=== PATIENT | female | born 1995 | race Caucasian/White ===

== ENCOUNTER 2018-03-30 16:24 | Emergency (ER) | payer BC, OTHER ==
[2018-03-30 17:24] LABS: APPEARANCE,URINE SLIGHTLY-CLOUDY; BILIRUBIN,URINE NEGATIVE (NEGATIVE); COLOR,URINE AMBER; GLUCOSE, URINE NEGATIVE (NEGATIVE); KETONES,URINE NEGATIVE (NEGATIVE); LEUKOCYTE ESTERASE,URINE NEGATIVE (NEGATIVE); NITRITE,URINE POSITIVE (NEGATIVE); PROTEIN,URINE 30 mg/dL (NEGATIVE); URINE SPECIFIC GRAVITY 1.025
[2018-03-30 17:37] VITALS: BP 111/63
--- NOTE | 2018-03-30 18:04 | ER Document Report ---
ED GI/ - General Chief Complaint: Urinary Problem Stated Complaint: PAINFUL URINATION Time Seen by Provider: 03/30/18 17:10 Mode of Arrival: Ambulatory Information source: Patient Notes: 22-year-old female presented ED for urinary tract symptoms. She states she has burning frequency and urgency with urination. She states she has been treated for UTIs in the past and this feels the same. She states she is usually able to get the antibiotic she needs but she is out of town right now was not able to. Patient is alert and oriented respirations regular and unlabored, speaking in full sentences, walks with a even steady gait. Patient denies any fevers at this time. TRAVEL OUTSIDE OF THE [place] IN LAST 30 DAYS: No - HPI Patient complains to provider of: Other - Frequency urgency and burning with urination Onset: This morning Timing/Duration: Gradual Quality of pain: Burning Severity at maximum: Moderate Severity in ED: Moderate Pain Level: 3 Associated symptoms: Urinary frequency, Urinary urgency, Other - Burning with urination. 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 Lives with: Family Family History: Reviewed & Not Pertinent Patient has suicidal ideation: No Patient has homicidal ideation: No - Past Medical History Cardiac Medical History: Reports: None Pulmonary Medical History: Reports: None EENT Medical History: Reports: None Endocrine Medical History: Reports: None Renal/ Medical History: Reports: Hx Ovarian Cysts - PCOS, Other - Endometriosis, frequent UTIs Malignancy Medical History: Reports: None GI Medical History: Reports: Hx Ulcer Musculoskeltal Medical History: Reports None Skin Medical History: Reports None Psychiatric Medical History: Reports: None Traumatic Medical History: Reports: None Infectious Medical History: Reports: None Past Surgical History: Reports: Hx Appendectomy, Hx Dilation and Curettage - Immunizations Immunizations up to date: Yes Review of Systems - Review of Systems Constitutional: No symptoms reported EENT: No symptoms reported Cardiovascular: No symptoms reported Respiratory: No symptoms reported Gastrointestinal: No symptoms reported Genitourinary: Burning, Frequency, Pain, Urgency Female Genitourinary: No symptoms reported Musculoskeletal: No symptoms reported Skin: No symptoms reported Hematologic/Lymphatic: No symptoms reported Neurological/Psychological: No symptoms reported -: Yes All other systems reviewed and negative Physical Exam - Vital signs Vitals: Temp Pulse Resp BP Pulse Ox 98.3 F 80 16 107/61 98 03/30/18 16:36 03/30/18 16:36 03/30/18 16:36 03/30/18 16:36 03/30/18 16:36 Interpretation: Normal - General General appearance: Appears well, Alert - HEENT Head: Normocephalic, Atraumatic Eyes: Normal Pupils: PERRL - Respiratory Respiratory status: No respiratory distress Chest status: Nontender Breath sounds: Normal Chest palpation: Normal - Cardiovascular Rhythm: Regular Heart sounds: Normal auscultation Murmur: No - Abdominal Inspection: Normal Distension: No distension Bowel sounds: Normal Tenderness: Tender - Suprapubic Organomegaly: No organomegaly - Back Back: Normal, Nontender - Extremities General upper extremity: Normal inspection, Nontender, Normal color, Normal ROM , Normal temperature General lower extremity: Normal inspection, Nontender, Normal color, Normal ROM , Normal temperature, Normal weight bearing. No: Chasity's sign - Neurological Neuro grossly intact: Yes Cognition: Normal Orientation: AAOx4 Cassidy Coma Scale Eye Opening: Spontaneous Spur Coma Scale Verbal: Oriented Cassidy Coma Scale Motor: Obeys Commands Cassidy Coma Scale Total: 15 Speech: Normal Motor strength normal: LUE, RUE, LLE, RLE Sensory: Normal - Psychological Associated symptoms: Normal affect, Normal mood - Skin Skin Temperature: Warm Skin Moisture: Dry Skin Color: Normal Course - Re-evaluation Re-evalutation: 03/30/18 22:16 Patient treated with Bactrim and peridium for her urinary tract symptoms. Urine was also sent for culture to ensure that this is the right antibiotic for her. Patient is allergic to Macrobid and penicillin. Patient started to follow -up with her primary doctor to ensure the urinary tract infection is cleared up. Patient instructed to return to the ED for any increase in symptoms. - Vital Signs Vital signs: Temp Pulse Resp BP Pulse Ox 98.3 F 72 18 111/63 100 07/03/18 16:36 03/30/18 17:35 03/30/18 17:35 03/30/18 17:35 03/30/18 17:35 - Laboratory Laboratory results interpreted by me: 03/30/18 17:00 Urine Protein 30 H Urine Blood MODERATE H Urine Nitrite POSITIVE H Urine Urobilinogen 4.0 H Urine Ascorbic Acid 40 H Discharge - Discharge Clinical Impression: UTI (urinary tract infection) Qualifiers: Urinary tract infection type: site unspecified Hematuria presence: with hematuria Qualified Code(s): N39.0 - Urinary tract infection, site not specified Condition: Stable Disposition: HOME, SELF-CARE Additional Instructions: URINARY TRACT INFECTION: Your evaluation indicates that you have a urinary tract infection. This is due to germs growing in the bladder. This is a common problem. This infection usually responds quickly to antibiotics. Your antibiotic should be taken exactly as prescribed. Drink plenty of fluids -- three to four quarts a day. Occasionally, a bladder anesthetic will be prescribed to help stop the feeling of urgency until the antibiotic has a chance to clear the infection. This may cause your urine to be dark orange. Certain urine infections require a culture. If the doctor obtained a culture, the results will be back in two days. You should call to see if a change in treatment is needed. A repeat urinalysis after you finish treatment is often recommended. The physician will let you know if further testing is required. Call the doctor if you develop fever, chills, flank pain, inability to urinate, or blood in the urine. TRIMETHOPRIM-SULFA: You have been given a prescription for trimethoprim-sulfa (TMS, Septra, Bactrim). This is a combination antibiotic of the sulfa class, often used for urinary tract infections, middle ear infections, bronchitis, shigella intestinal infection, and Pneumocystis pneumonia. TMS is usually well-tolerated. Occasional side effects include nausea and decreased appetite. Septra is not recommended for infants less than two months of age. Do not take this medication if you have experienced severe side effects or allergy to sulfa medicine. You should stop this medicine at once and contact your physician if you develop any rash, joint pain, shortness of breath, bruising, or jaundice ( yellow color in the skin), or if you develop any other new or unusual symptoms. URINARY ANESTHETIC AGENT: You have been given a medication (Pyridium) for urinary tract discomfort. This medicine numbs the lining of the bladder and urethra, resulting in less pain, burning, and urgency. You may take it as needed, according to instructions. When the symptoms resolve, you can stop this medication (be sure to continue any other medications the doctor has given you). This medicine turns the urine a dark orange. It may stain underwear. Occasionally, it can cause nausea. Return for evaluation if there are any unexpected effects, such as itching, hives, or shortness of breath. FOLLOW-UP CARE: If you have been referred to a physician for follow-up care, call the physician s office for an appointment as you were instructed or within the next two days. If you experience worsening or a significant change in your symptoms, notify the physician immediately or return to the Emergency Department at any time for re-evaluation. Prescriptions: Phenazopyridine HCl [Pyridium 200 mg Tablet] 200 mg PO TID #15 tablet Sulfamethoxazole/Trimethoprim [Bactrim Ds Tablet] 1 each PO BID #10 tablet Referrals: HALEIGH LOWRY MD [Primary Care Provider] - Follow up as needed
[2018-03-30] MEDS ORDERED: SULFAMETHOXAZOLE/TRIMETHOPRIM 800-160 MG TABLET PO ONE (18:05)
[2018-03-30] MEDS ORDERED: PHENAZOPYRIDINE HCL 200 MG TABLET PO ONE (18:05)
== END 2018-03-30 18:15 | disposition home or self-care (01) ==
LOC: ER 16:24
DX: N39.0 Urinary tract infection, site not specified (principal); Z88.0 Allergy status to penicillin
CPT/HCPCS: 81001; 87086; 87088; 87186; 99283

== ENCOUNTER 2018-05-18 09:10 | Emergency (ER) | payer OTHER, BC ==
[2018-05-18 09:16] VITALS: BP 112/69
[2018-05-18] MEDS ORDERED: HYDROCODONE/ACETAMINOPHEN 5-325 MG TABLET PO ONE (09:49)
[2018-05-18] MEDS ORDERED: IBUPROFEN 600 MG TABLET PO ONE (09:49)
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
== END 2018-05-18 10:02 | disposition home or self-care (01) ==
LOC: ER 09:10
DX: S16.1XXA Strain of muscle, fascia and tendon at neck level, initial encounter (principal); R51 Headache; M54.2 Cervicalgia; M25.512 Pain in left shoulder; V87.7XXA Person injured in collision between other specified motor vehicles (traffic), initial encounter
CPT/HCPCS: 99283

== ENCOUNTER 2018-05-18 16:11 | Emergency (ER) | payer OTHER, BC ==
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
[2018-05-18 20:30] VITALS: BP 97/57
== END 2018-05-18 20:29 | disposition home or self-care (01) ==
LOC: ER 16:11
DX: S16.1XXD Strain of muscle, fascia and tendon at neck level, subsequent encounter (principal); S09.90XD Unspecified injury of head, subsequent encounter; H53.8 Other visual disturbances; R51 Headache; M54.2 Cervicalgia; R11.0 Nausea; V87.7XXD Person injured in collision between other specified motor vehicles (traffic), subsequent encounter
CPT/HCPCS: 70450; 72050; 99284

== ENCOUNTER 2018-06-27 02:12 | Emergency (ER) | payer BC, OTHER ==
[2018-06-27] MEDS ORDERED: ONDANSETRON HCL INJ/PF 4 MG/2 ML SDV IV ONE (02:29)
[2018-06-27] MEDS ORDERED: NORMAL SALINE 1000 ML 1,000 ML IV ONE (02:29)
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
[2018-06-27 06:03] VITALS: BP 102/65
== END 2018-06-27 05:59 | disposition home or self-care (01) ==
LOC: ER 02:12
DX: F10.129 Alcohol abuse with intoxication, unspecified (principal); R11.2 Nausea with vomiting, unspecified; Z88.1 Allergy status to other antibiotic agents; Z88.0 Allergy status to penicillin
CPT/HCPCS: 99284; 96361; 96374; J2405

== ENCOUNTER 2018-08-01 17:12 | Emergency (ER) | payer BC, OTHER ==
[2018-08-01 18:03] LABS: APPEARANCE,URINE SLIGHTLY-CLOUDY; BILIRUBIN,URINE NEGATIVE (NEGATIVE); COLOR,URINE YELLOW; GLUCOSE, URINE NEGATIVE (NEGATIVE); KETONES,URINE NEGATIVE (NEGATIVE); LEUKOCYTE ESTERASE,URINE NEGATIVE (NEGATIVE); NITRITE,URINE NEGATIVE (NEGATIVE); PROTEIN,URINE NEGATIVE (NEGATIVE); URINE SPECIFIC GRAVITY 1.027
[2018-08-01] MEDS ORDERED: DEXAMETHASONE SOD PHOS INJ 10 MG/1 ML VIAL IM ONE (18:09)
--- NOTE | 2018-08-01 18:11 | ER Document Report ---
HPI - HPI Pain Level: 3 Notes: Patient is a 23-year-old female who presents to the ED complaining of urinary burning over the last few days along with a sore throat, nasal congestion/ discharge. Patient states that she does have a history of an ovarian cyst which is being evaluated by [facility] and planned surgery. She does not believe she is , but does not mind testing. Patient states that she has also been with the same partner for a long period of time and does not have a high suspicion for any STD or STI, but is willing to get that tested as well. She does not want any pretreatment in the meantime. She is otherwise eating and drinking without any difficulties. She is having normal bowel movements. No other concerns or complaints. Denies any headache, fever, neck pain, chest pain , palpitations, syncope, cough, shortness of breath, wheeze, dyspnea, abdominal pain, nausea/vomiting/diarrhea, urinary retention, back pain, loss of control of bowel or bladder, numbness/tingling, or rash. - ROS Systems Reviewed and Negative: Yes All other systems reviewed and negative Past Medical History - Social History Smoking Status: Never Smoker Family History: Reviewed & Not Pertinent Renal/ Medical History: Reports: Hx Ovarian Cysts - PCOS. Denies: Hx Peritoneal Dialysis GI Medical History: Reports: Hx Ulcer Psychiatric Medical History: Reports: Hx Anxiety, Hx Depression Traumatic Medical History: Reports: Hx Fractures - both arms Past Surgical History: Reports: Hx Appendectomy, Hx Dilation and Curettage, Hx Gynecologic Surgery - D&C, Hx Oral Surgery - Immunizations Immunizations up to date: Yes Hx Diphtheria, Pertussis, Tetanus Vaccination: Yes Vertical Provider Document - CONSTITUTIONAL Agree With Documented VS: Yes Notes: PHYSICAL EXAMINATION: GENERAL: Well-appearing, well-nourished and in no acute distress. A&Ox4. Answers questions appropriately. Moves comfortably w/o notable distress HEAD: Atraumatic, normocephalic. EYES: Pupils equal round and reactive to light, extraocular movements intact, sclera anicteric, conjunctiva are normal. ENT: EAC clear b/l. TM's intact b/l without erythema, fluid, or perforation. Nares patent and with clear discharge. oropharynx mild erythema without exudates. 1+ tonsilar hypertrophy with erythema no exudate. No palatine shift. Uvula midline. No tongue protrusion. No drooling, hoarseness, or airway compromise. Moist mucous membranes. No sinus tenderness. NECK: Normal range of motion, supple without lymphadenopathy. No rigidity/ meningismus. LUNGS: Breath sounds clear to auscultation bilaterally and equal. No wheezes rales or rhonchi. No retractions HEART: Regular rate and rhythm without murmurs, rubs, gallops. ABDOMEN: Soft, nontender, nondistended abdomen. No guarding, no rebound. No masses appreciated. Normal bowel sounds present. No CVA tenderness bilaterally. No hepatosplenomegaly. : deferred. pt preferred self-swab. NEUROLOGICAL: Normal speech, normal gait. PSYCH: Normal mood, normal affect. SKIN: Warm, Dry, normal turgor, no rashes or lesions noted. - INFECTION CONTROL TRAVEL OUTSIDE OF THE [place] IN LAST 30 DAYS: No Course - Re-evaluation Re-evalutation: 08/01/18 19:08 Patient is an afebrile, well-hydrated, 23-year-old female who presents to the ED with an acute URI suspect to be viral as well as bacterial vaginosis and dysuria unspecified. Vitals are acceptable without any significant tachycardia , tachypnea, or hypoxia. PE is otherwise unremarkable. Patient's abdomen is soft and nontender. She is nontoxic-appearing and is tolerating p.o. without difficulties. Rapid strep was negative with a throat culture pending. Urinalysis was grossly unremarkable. Urine culture is pending. See wet mount results. Chlamydia/gonorrhea tests are pending and patient declined pretreatment at this time. She is aware that she may need to return if any positive testing. No further labs or imaging warranted at this time. Decadron was given IM today. Low suspicion/risk for joseph-tonsillar/pharyngeal abscess, airway compromise, acute appendicitis, bowel obstruction, acute cholecystitis, acute cholangitis, perforated diverticulitis, incarcerated hernia, pancreatitis , perforated ulcer, peritonitis, sepsis, pelvic inflammatory disease, ectopic , tubo-ovarian abscess, ovarian torsion, or other systemic emergent condition at this time. Patient is aware that her condition can change from initial presentation and she needs to monitor symptoms closely and seek medical attention if any acute changes. I will be sending her home with a prescription for Flagyl. Conservative measures otherwise for symptoms. Recheck with [facility]/ PCM in 2-3 days. Return to the ED with any worsening/concerning symptoms otherwise as reviewed in discharge. Patient is in agreement. - Vital Signs Vital signs: Temp Pulse Resp BP Pulse Ox 98.4 F 86 18 118/72 100 08/01/18 17:23 08/01/18 17:23 08/01/18 17:23 08/01/18 17:23 08/01/18 17:23 - Laboratory Laboratory results interpreted by me: 08/01/18 17:44 Urine Blood LARGE H Urine Urobilinogen 2.0 H Discharge - Discharge Clinical Impression: Acute URI, Dysuria, Bacterial vaginosis Condition: Stable Disposition: HOME, SELF-CARE Instructions: Upper Respiratory Illness ([facility]), Vaginosis, Bacterial ([facility]), Metronidazole ([facility]) Additional Instructions: Maintain fluid intake Proper hygienic technique Keep the skin clean Ajnv-stw-hebaliq meds as needed Tylenol/ibuprofen as needed Check in with the health department this week for further testing if warranted Your chlamydia/Ghon test are pending and you will be notified if positive results; you may call in 1 day for the results as well F/u with your PCM/OBGYN in 2-3 days for a recheck Return to the ED with any development of MCDOWELL/fever, trouble with vision, eye redness, worsening pain, urethral discharge, urinary retention, blood in the urine, flank pain, abdominal pain, n/v, Chest Pain, shortness of breath, joint pains, trouble breathing, or any other worsening/concerning symptoms as needed otherwise. Prescriptions: Metronidazole [Flagyl] 500 mg PO BID #14 tablet Referrals: HALEIGH LOWRY MD [Primary Care Provider] - Follow up as needed [facility] [Provider Group] - Follow up as needed
[2018-08-01 18:34] LABS: BACTERIA (WET MOUNT) 4+ BACTERIA SEEN; EPITHELIALS (WET MOUNT) 3+ EPITHELIALS SEEN; RBCS (WET MOUNT) NO RBCS SEEN; T.VAGINALIS (WET MOUNT) NO TRICHOMONAS SEEN; WBCS (WET MOUNT) 2+ WBCS SEEN; YEAST (WET MOUNT) NO YEAST SEEN
[2018-08-01 19:36] VITALS: BP 99/56
[2018-08-01 19:56] LABS: CHLAM PCR NOT DETECTED (NOT DETECT); GON PCR NOT DETECTED (NOT DETECT)
== END 2018-08-01 19:37 | disposition home or self-care (01) ==
LOC: ER 17:12
DX: J06.9 Acute upper respiratory infection, unspecified (principal); N76.0 Acute vaginitis; B96.89 Other specified bacterial agents as the cause of diseases classified elsewhere; R30.0 Dysuria; J02.9 Acute pharyngitis, unspecified
CPT/HCPCS: 99283; 96372; 87070; 87086; 87210; 87880; 81025; 81001; 87491; 87591; J1100

== ENCOUNTER 2018-08-06 16:43 | Emergency (ER) | payer BC, OTHER ==
[2018-08-06] MEDS ORDERED: DICYCLOMINE HCL 20 MG TABLET PO ONE (17:31)
[2018-08-06] MEDS ORDERED: KETOROLAC TROMETHAMINE 10 MG TABLET PO ONE (17:31)
--- NOTE | 2018-08-06 17:50 | ER Document Report ---
ED General - General Chief Complaint: Abdominal Pain Stated Complaint: BREATHING PROBLEMS Time Seen by Provider: 08/06/18 17:24 Mode of Arrival: Ambulatory Information source: Patient Notes: Chief complaint: Sore throat and cough nasal congestion, abdominal pain History of complain:( obtained from----patient) 23 years old female was recently seen here in the ED had strep throat was done which was negative. She presents today with upper respiratory symptoms such as condition runny nose sore throat cough on and off. Denies any difficulty in breathing or wheezing. She also complained of diffuse abdominal discomfort associated with nausea no vomiting denies any diarrhea but did not have bowel movement more than 3 days. Denies any dysuria frequency urgency. She is being treated for bacterial diagnosis Onset: As above Duration: Last few days Severity: Moderate Quality: Crampy Context: As described above Exacerbating factor and relieving factors: REVIEW OF SYSTEMS: CONSTITUTIONAL : Denies fever, chills, or sweats. Denies recent illness. EENT: Denies eye, ear, throat, or mouth pain or symptoms. Denies nasal or sinus congestion or discharge. Denies throat, tongue, or mouth swelling or difficulty swallowing. CARDIOVASCULAR: Denies chest pain. Denies palpitations or racing or irregular heart beat. Denies ankle edema. RESPIRATORY: Denies cough, cold, or chest congestion. Denies shortness of breath, difficulty breathing, or wheezing. GASTROINTESTINAL: Denies distention. Denies nausea, vomiting, or diarrhea. Denies blood in vomitus, stools, or per rectum. Denies black, tarry stools. Denies constipation. GENITOURINARY: Denies difficulty urinating, painful urination, burning, frequency, blood in urine, or discharge. FEMALE GENITOURINARY: Denies vaginal bleeding, heavy or abnormal periods, irregular periods. Denies vaginal discharge or odor. MUSCULOSKELETAL: Denies back or neck pain or stiffness. Denies joint pain or swelling. SKIN: Denies rash, lesions or sores. HEMATOLOGIC : Denies easy bruising or bleeding. LYMPHATIC: Denies swollen, enlarged glands. NEUROLOGICAL: Denies confusion or altered mental status. Denies passing out or loss of consciousness. Denies dizziness or lightheadedness. Denies headache. Denies weakness or paralysis or loss of use of either side. Denies problems with gait or speech. Denies sensory loss, numbness, or tingling. Denies seizures. PSYCHIATRIC: Denies anxiety or stress. Denies depression, suicidal ideation, or homicidal ideation. ALL OTHER SYSTEMS REVIEWED AND NEGATIVE. PHYSICAL EXAMINATION: GENERAL: Well-appearing, well-nourished and in no acute distress. HEAD: Atraumatic, normocephalic. EYES: Pupils equal round and reactive to light, extraocular movements intact, conjunctiva are normal. ENT: Nares patent, oropharynx erythematous without exudates. Moist mucous membranes. NECK: Normal range of motion, supple without lymphadenopathy LUNGS: Breath sounds clear to auscultation bilaterally and equal. No wheezes rales or rhonchi. HEART: Regular rate and rhythm without murmurs ABDOMEN: Soft, diffuse abdominal tenderness no guarding. Palpable fecal mass, nondistended abdomen. No guarding, no rebound. No masses appreciated. Examination of genitals-deferred Musculoskeletal: Normal range of motion, no pitting or edema. No cyanosis. NEUROLOGICAL: Cranial nerves grossly intact. Normal speech, normal gait. Normal sensory, motor exams PSYCH: Normal mood, normal affect. SKIN: Warm, Dry, normal turgor, no rashes or lesions noted. Dictation was performed using [employer] voice recognition software TRAVEL OUTSIDE OF THE [place] IN LAST 30 DAYS: No - HPI Notes: dictated - Related Data Allergies/Adverse Reactions: nitrofurantoin [From Macrobid] Allergy (Verified 08/06/18 17:01) Penicillins Allergy (Verified 08/06/18 17:01) Past Medical History - Social History Smoking Status: Never Smoker Cigarette use (# per day): No Chew tobacco use (# tins/day): No Smoking Education Provided: No Frequency of alcohol use: None Drug Abuse: None Lives with: Family Family History: Reviewed & Not Pertinent Patient has suicidal ideation: No Patient has homicidal ideation: No Renal/ Medical History: Reports: Hx Ovarian Cysts - PCOS. Denies: Hx Peritoneal Dialysis GI Medical History: Reports: Hx Ulcer Psychiatric Medical History: Reports: Hx Anxiety, Hx Depression Traumatic Medical History: Reports: Hx Fractures - both arms Past Surgical History: Reports: Hx Appendectomy, Hx Dilation and Curettage, Hx Gynecologic Surgery - D&C, Hx Oral Surgery - Immunizations Immunizations up to date: Yes Hx Diphtheria, Pertussis, Tetanus Vaccination: Yes Review of Systems - Review of Systems Notes: dictated Physical Exam - Vital signs Vitals: Temp Pulse Resp BP Pulse Ox 99.4 F 102 H 20 103/70 100 08/06/18 17:05 08/06/18 17:05 08/06/18 17:05 08/06/18 17:05 08/06/18 17:05 - Notes Notes: dictated Course - Vital Signs Vital signs: Temp Pulse Resp BP Pulse Ox 98.1 F 80 20 97/57 L 100 08/06/18 18:58 08/06/18 18:58 08/06/18 17:05 08/06/18 18:58 08/06/18 18:58 - Laboratory Laboratory results interpreted by me: 08/06/18 17:45 Urine Ketones TRACE H Urine Blood SMALL H Ur Leukocyte Esterase SMALL H - Diagnostic Test Radiology reviewed: Image reviewed - KUB shows large amount of fecal material Discharge - Discharge Clinical Impression: Constipation by delayed colonic transit URI (upper respiratory infection) Qualifiers: URI type: unspecified URI Qualified Code(s): J06.9 - Acute upper respiratory infection, unspecified Condition: Fair Disposition: HOME, SELF-CARE Instructions: Constipation ([facility]), Upper Respiratory Infection, Infant or Child ([facility]) Prescriptions: Ketorolac Tromethamine [Toradol 10 mg Tablet] 10 mg PO Q8HP PRN #14 tablet PRN Reason: Azithromycin [Zithromax 250 mg Tablet] 250 mg PO ASDIR PRN #6 tablet PRN Reason: Dicyclomine HCl [Bentyl 10 mg Capsule] 1 cap PO TID #30 cap Lactulose [Cephulac Syrup 20 gm/30 ml Udcup] 20 gm PO BID #120 udc [id number]/Sod Sulf,Bicarb,Cl/KCl [Golytely Packet] 1 each PO ASDIR PRN #1 powd.pack PRN Reason: Referrals: HALEIGH LOWRY MD [Primary Care Provider] - Follow up as needed
[2018-08-06 18:10] LABS: APPEARANCE,URINE CLEAR; BILIRUBIN,URINE NEGATIVE (NEGATIVE); COLOR,URINE YELLOW; GLUCOSE, URINE NEGATIVE (NEGATIVE); KETONES,URINE TRACE mg/dL (NEGATIVE); LEUKOCYTE ESTERASE,URINE SMALL (NEGATIVE); NITRITE,URINE NEGATIVE (NEGATIVE); PROTEIN,URINE NEGATIVE (NEGATIVE); URINE SPECIFIC GRAVITY 1.021; UROBILINOGEN,URINE NEGATIVE mg/dL (<2.0)
[2018-08-06 18:59] VITALS: BP 97/57
--- NOTE | 2018-08-06 19:03 | RADIOLOGY REPORT (SQ) ---
EXAM DESCRIPTION: KUB/ABDOMEN (SINGLE VIEW) COMPLETED DATE/TIME: 08/06/2018 6:54 pm REASON FOR STUDY: Abdominal pain COMPARISON: None. NUMBER OF VIEWS: One view. TECHNIQUE: Supine radiographic image of the abdomen acquired. LIMITATIONS: None. FINDINGS: BOWEL GAS PATTERN: Normal bowel gas pattern. No dilated loops. CALCIFICATIONS: No suspicious calcifications. SOFT TISSUES: No gross mass or suggestion of organomegaly. HARDWARE: None in the abdomen. BONES: No acute fracture. No worrisome bone lesions. OTHER: No other significant finding. IMPRESSION: NO RADIOGRAPHIC EVIDENCE FOR ACUTE ABDOMINAL DISEASE. TECHNICAL DOCUMENTATION: JOB ID: [id number] [employer]- All Rights Reserved Reading location - IP/workstation name: [email or web address]
== END 2018-08-06 19:00 | disposition home or self-care (01) ==
LOC: ER 16:43
DX: K59.01 Slow transit constipation (principal); J06.9 Acute upper respiratory infection, unspecified; J02.9 Acute pharyngitis, unspecified; R05 Cough; R09.81 Nasal congestion; R10.84 Generalized abdominal pain; R11.0 Nausea; Z88.1 Allergy status to other antibiotic agents; Z88.0 Allergy status to penicillin
CPT/HCPCS: 99284; 81025; 86308; 81001; 74018; J3490 ×2

== ENCOUNTER 2018-09-02 05:14 | Day surgery (SDC) | payer BC, OTHER ==
[2018-08-31 12:10] LABS: APPEARANCE,URINE SLIGHTLY-CLOUDY; BILIRUBIN,URINE NEGATIVE (NEGATIVE); COLOR,URINE YELLOW; GLUCOSE, URINE NEGATIVE (NEGATIVE); KETONES,URINE NEGATIVE (NEGATIVE); LEUKOCYTE ESTERASE,URINE NEGATIVE (NEGATIVE); NITRITE,URINE NEGATIVE (NEGATIVE); PROTEIN,URINE NEGATIVE (NEGATIVE); URINE SPECIFIC GRAVITY 1.014; UROBILINOGEN,URINE NEGATIVE mg/dL (<2.0)
[2018-08-31 12:18] LABS: HEMATOCRIT 39.7 % (36.0-47.0); HEMOGLOBIN 13.6 g/dL (12.0-15.5); MEAN CORPUSCULAR HEMOGLOBIN 29.2 pg (27.0-33.4); MEAN CORPUSCULAR HGB CONC 34.3 g/dL (32.0-36.0); MEAN CORPUSCULAR VOLUME 85 fl (80-97); PLATELET COUNT 205 10^3/uL (150-450); RED BLOOD COUNT 4.67 10^6/uL (3.72-5.28); RED CELL DISTRIBUTION WIDTH 15.1 % (11.5-14.0); WHITE BLOOD COUNT 4.6 10^3/uL (4.0-10.5)
--- NOTE | 2018-08-31 12:26 | RADIOLOGY REPORT (SQ) ---
EXAM DESCRIPTION: CHEST PA/LATERAL COMPLETED DATE/TIME: 08/31/2018 12:18 pm REASON FOR STUDY: PRE-OP COMPARISON: None. EXAM PARAMETERS: NUMBER OF VIEWS: two views TECHNIQUE: Digital Frontal and Lateral radiographic views of the chest acquired. RADIATION DOSE: NA LIMITATIONS: none FINDINGS: LUNGS AND PLEURA: No opacities, masses or pneumothorax. No pleural effusion. MEDIASTINUM AND HILAR STRUCTURES: No masses or contour abnormalities. HEART AND VASCULAR STRUCTURES: Heart normal size. No evidence for failure. BONES: Dextroconvex scoliosis of the thoracic spine. HARDWARE: None in the chest. OTHER: No other significant finding. IMPRESSION: 1. NO SIGNIFICANT RADIOGRAPHIC FINDING IN THE CHEST. TECHNICAL DOCUMENTATION: JOB ID: [id number] [employer]- All Rights Reserved Reading location - IP/workstation name: [email or web address]
[2018-08-31 12:46] LABS: ANION GAP 13 (5-19); BLOOD UREA NITROGEN 10 mg/dL (7-20); CALCIUM 9.8 mg/dL (8.4-10.2); CARBON DIOXIDE 28 mmol/L (22-30); CHLORIDE 101 mmol/L (98-107); GLUCOSE 62 mg/dL (75-110); POTASSIUM 4.1 mmol/L (3.6-5.0); SODIUM 141.7 mmol/L (137-145)
--- NOTE | 2018-08-31 20:11 | EKG REPORT ---
SEVERITY:- NORMAL ECG - SINUS RHYTHM : Confirmed by: Xander Nino 31-Aug-2018 20:10:42
[~2018-09-02 05:14] MED LIST: CLINDAMYCIN 600 MG/D5W RTU 600 MG/50 ML RTUPB IV PRN; LACTATED RINGERS 1000 ML IV PRN; LIDOCAINE 0.5% INJ-PF (5 MG/ML) 50 ML SDV SUBCUT PRN; RINGERS SOLUTION,LACTATED 1,000 ML IV PRN
[2018-09-02] MEDS ORDERED: CLINDAMYCIN 600 MG/D5W RTU 600 MG/50 ML RTUPB IV ONE (05:24)
[2018-09-02] MEDS ORDERED: ALBUTEROL SULFATE 0.083% NEB 2.5 MG/3 ML AMPUL NEB ONE ×2 (05:48→06:45)
[2018-09-02] MEDS ORDERED: FENTANYL CITRATE INJ/PF 250 MCG/5 ML AMPULE ONE (07:02)
[2018-09-02] MEDS ORDERED: ACETAMINOPHEN 1,000 MG/100 ML RTUPB IV ONE (07:02)
[2018-09-02] MEDS ORDERED: MIDAZOLAM 2 MG/2 ML INJ ONE (07:02)
[2018-09-02] MEDS ORDERED: DEXMEDETOMIDINE INJ 80 MCG/20 ML VIAL IV ONE (07:02)
[2018-09-02] MEDS ORDERED: PROPOFOL INJ 200 MG/20 ML VIAL IV ONE (07:02)
[2018-09-02] MEDS ORDERED: LIDOCAINE 2% INJ-PF (20 MG/ML) 10 ML AMPUL ONE (07:13)
[2018-09-02] MEDS ORDERED: EPHEDRINE SULFATE INJ 50 MG/1 ML AMPULE ONE (07:13)
[2018-09-02] MEDS ORDERED: METHYLENE BLUE 50 MG/10 ML AMPULE ONE (07:21)
[2018-09-02] MEDS ORDERED: LIDOCAINE 1% INJ-PF (10 MG/ML) 30 ML SDV ONE (07:21)
[2018-09-02] MEDS ORDERED: FENTANYL CITRATE INJ/PF 100 MCG/2 ML AMPUL IV PRN ×3 (08:12)
[2018-09-02] MEDS ORDERED: ONDANSETRON HCL INJ/PF 4 MG/2 ML SDV IV PRN (08:12)
[2018-09-02] MEDS ORDERED: MEPERIDINE HCL/PF INJ 25 MG/1 ML DISP.SYRIN IV PRN (08:12)
[2018-09-02] MEDS ORDERED: PROMETHAZINE HCL INJ 25 MG/1 ML VIAL IV PRN ×2 (08:12)
[2018-09-02] MEDS ORDERED: DIPHENHYDRAMINE HCL 50 MG/ML VIAL IV PRN (08:12)
[2018-09-02] MEDS ORDERED: MORPHINE SULFATE 10 MG/ML INJ IV PRN (08:12)
--- NOTE | 2018-09-02 08:53 | OPERATIVE REPORT E ---
Operative Report NAME: MARCO A SOLIMAN : 1995 AGE: 23Y DATE OF SURGERY: 09/02/2018 ROOM: PREOPERATIVE DIAGNOSES: 1. Chronic pelvic pain. 2. Endometriosis. POSTOPERATIVE DIAGNOSES: 1. Chronic pelvic pain. 2. Endometriosis with bilateral endometriomas. OPERATION: 1. Diagnostic and operative laparoscopy. 2. Lysis of adhesions. 3. Chromopertubation. SURGEON: HIRAM FERNANDEZ M.D. ANESTHESIA: General endotracheal. COMPLICATIONS: None. FINDINGS: Bilateral endometriomas, possibly 2 cm, anterior and posterior cul-de-sac endometriosis powder villanueva present, pelvic adhesions to posterior cul-de-sac involving the left. Both ovaries were bound down and freed up during the procedure, and normal anatomy was approximated as best as could be performed. Upper abdomen is normal with normal gallbladder seen. Normal uterus is noted. Patent right tube was appreciated. Left tube was unable to be chromopertubated; however, it appeared normal. ESTIMATED BLOOD LOSS: Less than 5 mL. INDICATIONS FOR PROCEDURE: The patient had a 20-week loss and persistent left-sided pain. Ultrasound demonstrated what appeared to be a right follicular cyst and a left endometrioma. She desired attempt at definitive therapy. No guarantees or warranties regarding future fertility or pelvic pain relief have been made with the patient. PROCEDURE: The patient was taken to the operating room and placed in the modified lithotomy position after adequate anesthesia was ascertained, prepped and draped for a laparoscopy. A surgical time out was performed, antibiotics were given, and EUA performed. The bladder was drained under sterile technique with Epstein catheter inserted. A HUMI was placed within the uterus and draped in the sterile field. An open laparoscopy was performed due to previous surgery she had had and this extended to subcutaneous fat and fascia. The peritoneum was entered without difficulty. Origin cannula was placed and inflated. Gas was then instilled under direct visualization. Two ports were placed, one 10 mm port in the midline and one 5 mm port in the left midclavicular line at the region of an old appendectomy site. The above-noted findings were appreciated. Extensive lysis of adhesions was performed. The left ovary was brought into the operative field using grasping forceps and using monopolar cautery and scissors. The area of the endometrioma was filleted open and attempts to remove the entire capsule performed and unsuccessful due to the amount and extensive nature of the scarring within the ovary. Chromopertubation was performed prior to this aspect of the procedure. Copious irrigation was then performed, removing all debris. Both ovaries were noted to be free at the completion of the procedure. Approximately 150 mL of sterile saline was left in situ. Bleeding was nil. The right ovary demonstrated no focal capsule present but a right corpus luteum cyst was present. Due to further desire for fertility and approximation of normal anatomy as best as could be performed at this point, we elected to discontinue the case at this point. Fascia was closed with a 0-Vicryl stitch and subcuticular stitch of 3-0 plain gut was placed. At completion of the procedure all sponge and needle counts were correct. The patient was awakened and taken to the recovery room in stable condition. DICTATING PHYSICIAN: HIRAM FERNANDEZ M.D. [id number] PHY#: [id number] ID: [id number] JOB#: [id number] ACCT: [id number] cc:HIRAM FERNANDEZ M.D. >
[2018-09-02] MEDS ORDERED: OXYCODONE-ACETAMINOPHEN 5-325 MG TABLET ONE (09:10)
[2018-09-02] MEDS ORDERED: RINGERS SOLUTION,LACTATED 1,000 ML IV PRN (09:38)
[2018-09-02] MEDS ORDERED: OXYCODONE-ACETAMINOPHEN 5-325 MG TABLET PO PRN ×2 (09:42)
[2018-09-02] MEDS ORDERED: PROMETHAZINE HCL INJ 25 MG/1 ML VIAL IM PRN (09:43)
[2018-09-02] MEDS ORDERED: MORPHINE SULFATE 10 MG/ML INJ INJ PRN (09:43)
[2018-09-02 11:03] VITALS: BP 102/71
[2018-09-02] MEDS ORDERED: SUCCINYLCHOLINE CHLORIDE INJ 200 MG/10 ML VIAL ONE (13:46)
[2018-09-02] MEDS ORDERED: NEOSTIGMINE METHYLSULFATE 10 MG/10 ML VIAL ONE (13:46)
[2018-09-02] MEDS ORDERED: ROCURONIUM BROMIDE INJ 50 MG/5 ML VIAL IV ONE (13:46)
[2018-09-02] MEDS ORDERED: ONDANSETRON HCL INJ/PF 4 MG/2 ML SDV ONE (13:46)
[2018-09-02] MEDS ORDERED: DEXAMETHASONE SOD PHOSPHATE INJ 4 MG/1 ML VIAL ONE (13:46)
[2018-09-02] MEDS ORDERED: GLYCOPYRROLATE 1 MG/5 ML SYRINGE ONE (13:46)
[2018-09-02] MEDS ORDERED: PHENYLEPHRINE HCL INJ/PF 10 MG/1 ML SDV ONE (13:46)
[2018-09-02] MEDS ORDERED: LIDOCAINE 2% INJ-PF (20 MG/ML) 2 ML AMPUL ONE (13:46)
[2018-09-02] MEDS ORDERED: METOCLOPRAMIDE HCL INJ/PF 10 MG/2 ML SDV ONE (13:46)
[2018-09-02] MEDS ORDERED: KETOROLAC TROMETHAMINE 60 MG/2 ML SDV ONE (13:46)
[2018-09-02] MEDS ORDERED: IBUPROFEN 800 MG TABLET PO SCH (14:00)
== END 2018-09-02 10:40 | disposition home or self-care (01) ==
LOC: OROUT 05:14
PROVIDERS: ATTEND Specialist
DX: N80.1 Endometriosis of ovary (principal); G89.29 Other chronic pain; R10.2 Pelvic and perineal pain; N80.3 Endometriosis of pelvic peritoneum; N83.11 Corpus luteum cyst of right ovary; N73.6 Female pelvic peritoneal adhesions (postinfective); E28.2 Polycystic ovarian syndrome; N94.10 Unspecified dyspareunia; J45.909 Unspecified asthma, uncomplicated; Z88.0 Allergy status to penicillin; Z88.1 Allergy status to other antibiotic agents; Z79.51 Long term (current) use of inhaled steroids
CPT/HCPCS: 93005; 86900; 86901; 36415; 86850; 82962; 85027; 81025; 80048; 81001; 71046; 93010; 58660; 58350; J2250; J3490 ×6; J1100; J1885; J3010; J2765; J2370; J0330; J2405; J2704; J0131; Q9968; 790

== ENCOUNTER 2018-10-07 12:17 | Emergency (ER) | payer BC, OTHER ==
[2018-10-07 12:23] VITALS: BP 106/72
[2018-10-07] MEDS ORDERED: HYDROCODONE/ACETAMINOPHEN 5-325 MG TABLET PO ONE (12:50)
--- NOTE | 2018-10-07 12:50 | ER Document Report ---
ED GI/ - General Chief Complaint: Vaginal Bleeding Stated Complaint: VAGINAL BLEEDING Time Seen by Provider: 10/07/18 12:46 Mode of Arrival: Ambulatory Notes: Chief complaint: Abdominal pain History of complain:( obtained from----patient) 23 years old female with a history of endometriosis, had recent surgery done for that. Comes with abdominal pain. Unable to take any medications because she has peptic ulcer disease. No fever chills or other constitutional symptoms Onset: Sudden Duration: Last few Severity: Moderate to severe Quality: Sharp Context: Endometriosis Exacerbating factor and relieving factors: None REVIEW OF SYSTEMS: CONSTITUTIONAL : Denies fever, chills, or sweats. Denies recent illness. EENT: Denies eye, ear, throat, or mouth pain or symptoms. Denies nasal or sinus congestion or discharge. Denies throat, tongue, or mouth swelling or difficulty swallowing. CARDIOVASCULAR: Denies chest pain. Denies palpitations or racing or irregular heart beat. Denies ankle edema. RESPIRATORY: Denies cough, cold, or chest congestion. Denies shortness of breath, difficulty breathing, or wheezing. GASTROINTESTINAL: Denies distention. Denies nausea, vomiting, or diarrhea. Denies blood in vomitus, stools, or per rectum. Denies black, tarry stools. Denies constipation. GENITOURINARY: Denies difficulty urinating, painful urination, burning, frequency, blood in urine, or discharge. FEMALE GENITOURINARY: Denies vaginal bleeding, heavy or abnormal periods, irregular periods. Denies vaginal discharge or odor. MUSCULOSKELETAL: Denies back or neck pain or stiffness. Denies joint pain or swelling. SKIN: Denies rash, lesions or sores. HEMATOLOGIC : Denies easy bruising or bleeding. LYMPHATIC: Denies swollen, enlarged glands. NEUROLOGICAL: Denies confusion or altered mental status. Denies passing out or loss of consciousness. Denies dizziness or lightheadedness. Denies headache. Denies weakness or paralysis or loss of use of either side. Denies problems w ith gait or speech. Denies sensory loss, numbness, or tingling. Denies seizures. PSYCHIATRIC: Denies anxiety or stress. Denies depression, suicidal ideation, or homicidal ideation. ALL OTHER SYSTEMS REVIEWED AND NEGATIVE. PHYSICAL EXAMINATION: GENERAL: Well-appearing, well-nourished and in no acute distress. HEAD: Atraumatic, normocephalic. EYES: Pupils equal round and reactive to light, extraocular movements intact, conjunctiva are normal. ENT: Nares patent, oropharynx clear without exudates. Moist mucous membranes. NECK: Normal range of motion, supple without lymphadenopathy LUNGS: Breath sounds clear to auscultation bilaterally and equal. No wheezes rales or rhonchi. HEART: Regular rate and rhythm without murmurs ABDOMEN: Soft, nontender, nondistended abdomen. No guarding, no rebound. No masses appreciated. Examination of genitals-deferred Musculoskeletal: Normal range of motion, no pitting or edema. No cyanosis. NEUROLOGICAL: Cranial nerves grossly intact. Normal speech, normal gait. Normal sensory, motor exams PSYCH: Normal mood, normal affect. SKIN: Warm, Dry, normal turgor, no rashes or lesions noted. Dictation was performed using [employer] voice recognition software TRAVEL OUTSIDE OF THE [place] IN LAST 30 DAYS: No - HPI Notes: 10/07/18 12:48 Dictated - Related Data Allergies/Adverse Reactions: nitrofurantoin [From Macrobid] Allergy (Verified 10/07/18 12:19) Penicillins Allergy (Verified 10/07/18 12:19) Past Medical History - General Last Menstrual Period: 09/03/2018 - Social History Smoking Status: Never Smoker Chew tobacco use (# tins/day): No Frequency of alcohol use: Occasional Drug Abuse: None Lives with: Family Family History: Reviewed & Not Pertinent Patient has suicidal ideation: No Patient has homicidal ideation: No - Past Medical History Cardiac Medical History: Denies: Hx Coronary Artery Disease, Hx Heart Attack, Hx Hypertension Pulmonary Medical History: Denies: Hx Asthma, Hx Bronchitis, Hx COPD, Hx Pneumonia Neurological Medical History: Denies: Hx Cerebrovascular Accident, Hx Seizures Renal/ Medical History: Reports: Hx Ovarian Cysts - PCOS. Denies: Hx Peritoneal Dialysis GI Medical History: Reports: Hx Ulcer Musculoskeletal Medical History: Denies Hx Arthritis Psychiatric Medical History: Reports: Hx Anxiety, Hx Depression Traumatic Medical History: Reports: Hx Fractures - both arms Past Surgical History: Reports: Hx Appendectomy, Hx Dilation and Curettage, Hx Gynecologic Surgery - D&C 2016, DRAINED CYST ON L OVARY, Hx Oral Surgery - Immunizations Immunizations up to date: Yes Hx Diphtheria, Pertussis, Tetanus Vaccination: Yes Review of Systems - Review of Systems Notes: Dictated Physical Exam - Vital signs Vitals: Temp Pulse Resp BP Pulse Ox 97.9 F 75 16 106/72 100 10/07/18 12:22 10/07/18 12:22 10/07/18 12:22 10/07/18 12:22 10/07/18 12:22 - Notes Notes: Dictated Course - Vital Signs Vital signs: Temp Pulse Resp BP Pulse Ox 97.9 F 75 16 106/72 100 10/07/18 12:22 10/07/18 12:22 10/07/18 12:22 10/07/18 12:22 10/07/18 12:22 Discharge - Discharge Clinical Impression: Endometriosis Abdominal pain Qualifiers: Abdominal location: generalized Qualified Code(s): R10.84 - Generalized abdominal pain Condition: Fair Disposition: HOME, SELF-CARE Instructions: Abdominal Pain ([facility]), Endometriosis ([facility]) Prescriptions: Hydrocodone Bit/Acetaminophen [Hydrocodon-Acetaminophen 5-325] 1 each PO TID #14 tablet Referrals: HALEIGH LOWRY MD [Primary Care Provider] - Follow up as needed
== END 2018-10-07 13:00 | disposition home or self-care (01) ==
LOC: ER 12:17
DX: N80.9 Endometriosis, unspecified (principal); R10.84 Generalized abdominal pain; Z88.3 Allergy status to other anti-infective agents; Z88.0 Allergy status to penicillin
CPT/HCPCS: 99283

== ENCOUNTER 2018-10-22 05:42 | Emergency (ER) | payer BC, OTHER ==
[2018-10-22 05:49] VITALS: BP 103/63
[2018-10-22] MEDS ORDERED: CEPHALEXIN 500 MG CAPSULE PO ONE (07:37)
--- NOTE | 2018-10-22 07:41 | ER Document Report ---
ED General - General Chief Complaint: Ear Pain Stated Complaint: HEARING LOSS LEFT EAR Time Seen by Provider: 10/22/18 07:25 Primary Care Provider: ELIAS BETANCOURT MD [[facility]] - Follow up as needed HALEIGH LOWRY MD [Primary Care Provider] - Follow up as needed TRAVEL OUTSIDE OF THE [place] IN LAST 30 DAYS: No - HPI Patient complains to provider of: Hearing loss left ear Notes: Patient states hearing loss for approximately 24 hours. Patient states approximately 72 hours of URI type symptoms with runny nose congestion cough. Patient denies any recent travel denies any fevers chills nausea vomiting diarrhea denies any trauma to her ear. Patient otherwise resting comfortably upon my evaluation. - Related Data Allergies/Adverse Reactions: nitrofurantoin [From Macrobid] Allergy (Verified 10/07/18 12:19) Penicillins Allergy (Verified 10/07/18 12:) Past Medical History - Social History Smoking Status: Never Smoker Family History: Reviewed & Not Pertinent Patient has suicidal ideation: No Patient has homicidal ideation: No - Past Medical History Cardiac Medical History: Denies: Hx Coronary Artery Disease, Hx Heart Attack, Hx Hypertension Pulmonary Medical History: Denies: Hx Asthma, Hx Bronchitis, Hx COPD, Hx Pneumonia Neurological Medical History: Denies: Hx Cerebrovascular Accident, Hx Seizures Renal/ Medical History: Reports: Hx Ovarian Cysts - PCOS. Denies: Hx Peritoneal Dialysis GI Medical History: Reports: Hx Ulcer Musculoskeletal Medical History: Denies Hx Arthritis Psychiatric Medical History: Reports: Hx Anxiety, Hx Depression Traumatic Medical History: Reports: Hx Fractures - both arms Past Surgical History: Reports: Hx Appendectomy, Hx Dilation and Curettage, Hx Gynecologic Surgery - D&C 2015, DRAINED CYST ON L OVARY, Hx Oral Surgery - Immunizations Immunizations up to date: Yes Hx Diphtheria, Pertussis, Tetanus Vaccination: Yes Review of Systems - Review of Systems Constitutional: No symptoms reported EENT: Nose congestion, Other - Difficulty hearing left ear Cardiovascular: No symptoms reported Respiratory: No symptoms reported Gastrointestinal: No symptoms reported Genitourinary: No symptoms reported Female Genitourinary: No symptoms reported Musculoskeletal: No symptoms reported Skin: No symptoms reported Hematologic/Lymphatic: No symptoms reported Neurological/Psychological: No symptoms reported Physical Exam - Vital signs Vitals: Temp Pulse Resp BP Pulse Ox 97.2 F 70 16 103/63 100 10/22/18 05:47 10/22/18 05:47 10/22/18 05:47 10/22/18 05:47 10/22/18 05:47 Interpretation: Normal - General General appearance: Appears well, Alert - HEENT Head: Normocephalic, Atraumatic Eyes: Normal Conjunctiva: Normal Cornea: Normal Pupils: PERRL Ears: Normal External canal: Normal Tympanic membrane: Other - Left TM is erythematous with a purulent effusion behind right TM unaffected - Respiratory Respiratory status: No respiratory distress Chest status: Nontender Breath sounds: Normal Chest palpation: Normal - Cardiovascular Rhythm: Regular Heart sounds: Normal auscultation Murmur: No - Abdominal Inspection: Normal Distension: No distension Bowel sounds: Normal Tenderness: Nontender Organomegaly: No organomegaly - Back Back: Normal, Nontender - Extremities General upper extremity: Normal inspection, Nontender, Normal color, Normal ROM, Normal temperature General lower extremity: Normal inspection, Nontender, Normal color, Normal ROM, Normal temperature, Normal weight bearing. No: Chasity's sign - Neurological Neuro grossly intact: Yes Cognition: Normal Orientation: AAOx4 Cassidy Coma Scale Eye Opening: Spontaneous Byers Coma Scale Verbal: Oriented Cassidy Coma Scale Motor: Obeys Commands Byers Coma Scale Total: 15 Speech: Normal Motor strength normal: LUE, RUE, LLE, RLE Sensory: Normal - Psychological Associated symptoms: Normal affect, Normal mood - Skin Skin Temperature: Warm Skin Moisture: Dry Skin Color: Normal Course - Re-evaluation Re-evalutation: 10/22/18 14:57 Patient's examination consistent with otitis media infection. Possible etiology of patient's hearing loss. We will start the patient on Keflex that she is allergic to penicillins. Patient states she has taken Keflex in the past without any difficulty requesting Diflucan for a yeast infection. This was given to the patient as well - Vital Signs Vital signs: Temp Pulse Resp BP Pulse Ox 97.2 F 70 16 103/63 100 10/22/18 05:47 10/22/18 05:47 10/22/18 05:47 10/22/18 05:47 10/22/18 05:47 Discharge - Discharge Clinical Impression: Left middle ear infection Qualifiers: Otitis media type: unspecified Qualified Code(s): H66.92 - Otitis media, unspecified, left ear Disposition: HOME, SELF-CARE Instructions: Otitis Media ([facility]) Additional Instructions: Examination of your today shows signs of infection we will start you on a medication called Keflex. To help with your antibiotic associated yeast infection would recommend Monistat [id number] please wait 5-7 days at the complete the antibiotics if you still have signs of yeast infection you may take the Diflucan as prescribed. Take Tylenol Motrin for pain control Prescriptions: Cephalexin Monohydrate [Keflex 500 mg Capsule] 500 mg PO Q6H 10 Days capsule Fluconazole [Diflucan] 200 mg PO ONCE PRN #1 tablet PRN Reason: Referrals: HALEIGH LOWRY MD [Primary Care Provider] - Follow up as needed ELIAS BETANCOURT MD [[facility]] - Follow up as needed
== END 2018-10-22 07:50 | disposition home or self-care (01) ==
LOC: ER 05:42
DX: H66.92 Otitis media, unspecified, left ear (principal); H91.92 Unspecified hearing loss, left ear; R09.81 Nasal congestion; B37.9 Candidiasis, unspecified; Z88.1 Allergy status to other antibiotic agents; Z88.0 Allergy status to penicillin
CPT/HCPCS: 99282

== ENCOUNTER 2018-11-21 21:19 | Emergency (ER) | payer BC, OTHER ==
[2018-11-22 00:07] LABS: A TYPE INFLUENZA AG NEGATIVE (NEGATIVE); B INFLUENZA AG NEGATIVE (NEGATIVE)
--- NOTE | 2018-11-22 00:33 | ER Document Report ---
ED General - General Chief Complaint: Sore Throat Stated Complaint: SORE THROAT Time Seen by Provider: 11/21/18 22:46 Notes: Patient is a 23-year-old female without chronic medical problems who presents with 9 days of sore throat, cough and fever. Patient states that her symptoms started gradually and have not improved over that period of time. Describes a sore throat is a constant, aching soreness worsened by swallowing. She has tried [id number] medications with minimal improvement of her symptoms. States she came to the emergency department with her significant other as he is also sick and her symptoms are not getting better. She denies vomiting or diarrhea. Has been able to tolerate oral intake without difficulty. Denies difficulty breathing or inability to swallow. No syncope. Did get an influenza vaccine this year. Has not seen her primary care physician regarding today's concerns. TRAVEL OUTSIDE OF THE [place] IN LAST 30 DAYS: No - Related Data Allergies/Adverse Reactions: nitrofurantoin [From Macrobid] Allergy (Verified 10/07/18 12:19) Penicillins Allergy (Verified 10/07/18 12:19) Past Medical History - General Information source: Patient - Social History Smoking Status: Never Smoker Frequency of alcohol use: None Drug Abuse: None Lives with: Spouse/Significant other Family History: Reviewed & Not Pertinent Patient has suicidal ideation: No Patient has homicidal ideation: No - Past Medical History Cardiac Medical History: Denies: Hx Coronary Artery Disease, Hx Heart Attack, Hx Hypertension Pulmonary Medical History: Denies: Hx Asthma, Hx Bronchitis, Hx COPD, Hx Pneumonia Neurological Medical History: Denies: Hx Cerebrovascular Accident, Hx Seizures Renal/ Medical History: Reports: Hx Ovarian Cysts - PCOS. Denies: Hx Peritoneal Dialysis GI Medical History: Reports: Hx Ulcer Musculoskeletal Medical History: Denies Hx Arthritis Psychiatric Medical History: Reports: Hx Anxiety, Hx Depression Traumatic Medical History: Reports: Hx Fractures - both arms Past Surgical History: Reports: Hx Appendectomy, Hx Dilation and Curettage, Hx Gynecologic Surgery - D&C 2015, DRAINED CYST ON L OVARY, Hx Oral Surgery - Immunizations Immunizations up to date: Yes Hx Diphtheria, Pertussis, Tetanus Vaccination: Yes Review of Systems - Review of Systems Notes: Constitutional: Positive for fever. HENT: Positive for sore throat. Eyes: Negative for visual changes. Cardiovascular: Negative for chest pain. Respiratory: Negative for shortness of breath. Positive for cough Gastrointestinal: Negative for abdominal pain, vomiting or diarrhea. Genitourinary: Negative for dysuria. Musculoskeletal: Negative for back pain. Skin: Negative for rash. Neurological: Negative for headaches, weakness or numbness. 10 point ROS negative except as marked above and in HPI. Physical Exam - Vital signs Vitals: Temp Pulse Resp BP Pulse Ox 98.6 F 83 16 111/67 100 11/21/18 21:38 11/21/18 21:38 11/21/18 21:38 11/21/18 21:38 11/21/18 21:38 Interpretation: Normal Notes: PHYSICAL EXAMINATION: GENERAL: Well-appearing, well-nourished and in no acute distress. HEAD: Atraumatic, normocephalic. EYES: Pupils equal round and reactive to light, extraocular movements intact, sclera anicteric, conjunctiva are normal. ENT: nares patent, oropharynx clear without exudates. Moist mucous membranes. NECK: Normal range of motion, supple without lymphadenopathy LUNGS: Breath sounds clear to auscultation bilaterally and equal. No wheezes rales or rhonchi. HEART: Regular rate and rhythm without murmurs ABDOMEN: Soft, nontender, normoactive bowel sounds. No guarding, no rebound. No masses appreciated. EXTREMITIES: Normal range of motion, no pitting or edema. No cyanosis. NEUROLOGICAL: No focal neurological deficits. Moves all extremities spontaneously and on command. PSYCH: Normal mood, normal affect. SKIN: Warm, Dry, normal turgor, no rashes or lesions noted. Course - Re-evaluation Re-evalutation: 11/22/18 00:32 Patient presents with cough, vomiting, diarrhea, and fever at home consistent with a diagnosis of influenza. Although the patient's flu test is negative her significant other whom is here with the exact same symptoms has positive both flu a and flu B testing. Patient is overall well in appearance, in no acute distress. Lung sounds clear. Able to tolerate oral intake without difficulty here in the emergency department. After risks and benefits conversation with the patient regarding the use of Tamiflu, they have elected to use supportive care without Tamiflu based on concerns about lack of efficacy as well as the side effect profile. At this time will discharge with return precautions and follow-up recommendations. Verbal discharge instructions given a the bedside and opportunity for questions given. Medication warnings reviewed. Patient is in agreement with this plan and has verbalized understanding of return precautions and the need for primary care follow-up in the next 24-72 hours. - Vital Signs Vital signs: Temp Pulse Resp BP Pulse Ox 98.9 F 72 18 95/69 L 100 11/22/18 00:58 11/22/18 00:58 11/22/18 00:58 11/22/18 00:58 11/22/18 00:58 Discharge - Discharge Clinical Impression: Influenza, Sore throat Condition: Good Disposition: HOME, SELF-CARE Additional Instructions: You have influenza. There is no treatment that is effective for this diagnosis other than supportive care at home. This includes drinking plenty of fluids, using Tylenol or ibuprofen as needed for fever and discomfort, and Zofran as needed for nausea and vomiting. Please follow closely with you primary care physician the next 1-2 days regarding this diagnosis. Return to the emergency department immediately if you began to have persistent vomiting prevents you f rom being able to keep fluids down for more than 12 hours, you pass out, you began having difficulty breathing, you become confused, or you have any other symptoms that are worrisome to you.
[2018-11-22 01:06] VITALS: BP 95/69
== END 2018-11-22 01:00 | disposition home or self-care (01) ==
LOC: ER 21:19
DX: J11.1 Influenza due to unidentified influenza virus with other respiratory manifestations (principal); R05 Cough; R50.9 Fever, unspecified; Z88.1 Allergy status to other antibiotic agents; Z88.0 Allergy status to penicillin
CPT/HCPCS: 87070; 87804; 87880; 99283

== ENCOUNTER 2019-05-20 12:35 | Emergency (ER) | payer BC, OTHER ==
[2019-05-20] MEDS ORDERED: ACETAMINOPHEN 325 MG TABLET PO ONE (13:18)
--- NOTE | 2019-05-20 13:20 | ER Document Report ---
ED Medical Screen (RME) - General Chief Complaint: Fainting Stated Complaint: POSSIBLE SYNCOPE Time Seen by Provider: 05/20/19 13:12 Mode of Arrival: Ambulatory Information source: Patient Notes: 23-year-old female presented to ED for complaint of syncope at work. She states right after she got up she was aching all over to include and had a chest antibody. She states she did not hit her head. When she first came in the triage had her temperature is 100.1 and her pulse is 102. I rechecked her temperature and pulse temperature is 98.5 pulse is 95 with O2 sat of 100. She states her last menstrual cycle started today. She states she is prediabetic with ovarian cyst and depression. 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 I have greeted and performed a rapid initial assessment of this patient. A comprehensive ED assessment and evaluation of the patient, analysis of test results and completion of medical decision making process will be conducted by an additional ED providers. TRAVEL OUTSIDE OF THE [place] IN LAST 30 DAYS: No - Related Data Allergies/Adverse Reactions: nitrofurantoin [From Macrobid] Allergy (Verified 05/20/19 12:36) Penicillins Allergy (Verified 05/20/19 12:36) Past Medical History - Social History Chew tobacco use (# tins/day): No Frequency of alcohol use: None Drug Abuse: None - Past Medical History Cardiac Medical History: Denies: Hx Coronary Artery Disease, Hx Heart Attack, Hx Hypertension Pulmonary Medical History: Denies: Hx Asthma, Hx Bronchitis, Hx COPD, Hx Pneumonia Neurological Medical History: Denies: Hx Cerebrovascular Accident, Hx Seizures Renal/ Medical History: Reports: Hx Ovarian Cysts - PCOS. Denies: Hx Peritoneal Dialysis GI Medical History: Reports: Hx Ulcer Musculoskeltal Medical History: Denies Hx Arthritis Psychiatric Medical History: Reports: Hx Anxiety, Hx Depression Traumatic Medical History: Reports: Hx Fractures - both arms Past Surgical History: Reports: Hx Appendectomy, Hx Dilation and Curettage, Hx Gynecologic Surgery - D&C 2015, DRAINED CYST ON L OVARY, Hx Oral Surgery - Immunizations Immunizations up to date: Yes Hx Diphtheria, Pertussis, Tetanus Vaccination: Yes History of Influenza Vaccine for 06/2017 - 11/2017 Season: Yes Influenza Administration Date for 06/2017 - 11/2017 Season: 04/28/18 Physical Exam - Vital signs Vitals: Temp Pulse Resp BP Pulse Ox 98.6 F 102 H 16 108/69 100 05/20/19 12:39 05/20/19 12:39 05/20/19 12:39 05/20/19 12:39 05/20/19 12:39 Course - Vital Signs Vital signs: Temp Pulse Resp BP Pulse Ox 98.6 F 102 H 16 108/69 100 05/20/19 12:39 05/20/19 12:39 05/20/19 12:39 05/20/19 12:39 05/20/19 12:39
[2019-05-20 14:02] LABS: HEMATOCRIT 34.8 % (36.0-47.0); HEMOGLOBIN 11.7 g/dL (12.0-15.5); MEAN CORPUSCULAR HEMOGLOBIN 29.4 pg (27.0-33.4); MEAN CORPUSCULAR HGB CONC 33.7 g/dL (32.0-36.0); MEAN CORPUSCULAR VOLUME 87 fl (80-97); PLATELET COUNT 218 10^3/uL (150-450); RED BLOOD COUNT 3.99 10^6/uL (3.72-5.28); RED CELL DISTRIBUTION WIDTH 14.2 % (11.5-14.0); WHITE BLOOD COUNT 15.2 10^3/uL (4.0-10.5)
[2019-05-20 14:14] LABS: APPEARANCE,URINE SLIGHTLY-CLOUDY; BILIRUBIN,URINE NEGATIVE (NEGATIVE); COLOR,URINE YELLOW; GLUCOSE, URINE NEGATIVE (NEGATIVE); KETONES,URINE NEGATIVE (NEGATIVE); LEUKOCYTE ESTERASE,URINE NEGATIVE (NEGATIVE); NITRITE,URINE NEGATIVE (NEGATIVE); PROTEIN,URINE NEGATIVE (NEGATIVE); URINE SPECIFIC GRAVITY 1.016; UROBILINOGEN,URINE NEGATIVE mg/dL (<2.0)
[2019-05-20 14:21] LABS: ALBUMIN 3.8 g/dL (3.5-5.0); ALKALINE PHOSPHATASE 91 U/L (38-126); ANION GAP 9 (5-19); ASPARTATE AMINO TRANSFERASE 24 U/L (14-36); BILIRUBIN,DIRECT 0.3 mg/dL (0.0-0.4); BILIRUBIN,TOTAL 0.3 mg/dL (0.2-1.3); BLOOD UREA NITROGEN 7 mg/dL (7-20); CALCIUM 8.9 mg/dL (8.4-10.2); CARBON DIOXIDE 27 mmol/L (22-30); CHLORIDE 101 mmol/L (98-107); GLUCOSE 89 mg/dL (75-110); POTASSIUM 3.8 mmol/L (3.6-5.0); TOTAL PROTEIN 6.6 g/dL (6.3-8.2)
[2019-05-20 14:22] LABS: ABSOLUTE LYMPHOCYTES# (MANUAL) 0.9 10^3/uL (0.5-4.7); ABSOLUTE MONOCYTES # (MANUAL) 0.5 10^3/uL (0.1-1.4); BAND NEUTROPHILS % (MANUAL) 1 % (3-5); BASOPHILS % (MANUAL) 0 % (0-2); EOSINOPHILS % (MANUAL) 0 % (0-6); LYMPHOCYTES % (MANUAL) 6 % (13-45); MONOCYTES % (MANUAL) 3 % (3-13); SEGMENTED NEUTROPHILS % (MAN) 90 % (42-78); TOTAL CELLS COUNTED 100
[2019-05-20 14:23] LABS: ANISOCYTOSIS SLIGHT; OVALOCYTES SLIGHT; PLATELET COMMENT ADEQUATE; TOXIC VACUOLATION PRESENT
--- NOTE | 2019-05-20 14:58 | RADIOLOGY REPORT (SQ) ---
EXAM DESCRIPTION: CHEST 2 VIEWS COMPLETED DATE/TIME: 05/20/2019 2:47 pm REASON FOR STUDY: Cough congestion body aches syncope today COMPARISON: 08/31/2018 EXAM PARAMETERS: NUMBER OF VIEWS: two views TECHNIQUE: Digital Frontal and Lateral radiographic views of the chest acquired. RADIATION DOSE: NA LIMITATIONS: none FINDINGS: LUNGS AND PLEURA: No opacities, masses or pneumothorax. No pleural effusion. MEDIASTINUM AND HILAR STRUCTURES: No masses or contour abnormalities. HEART AND VASCULAR STRUCTURES: Heart normal size. No evidence for failure. BONES: Mild thoracic scoliosis with concavity toward the left. This is unchanged. HARDWARE: None in the chest. OTHER: No other significant finding. IMPRESSION: NO ACUTE RADIOGRAPHIC FINDING IN THE CHEST. TECHNICAL DOCUMENTATION: JOB ID: [id number] [facility]- All Rights Reserved Reading location - IP/workstation name: [email or web address]
[2019-05-20] MEDS ORDERED: KETOROLAC TROMETHAMINE INJ/PF 30 MG/1 ML SDV IV ONE (16:55)
[2019-05-20] MEDS ORDERED: NORMAL SALINE 1000 ML 1,000 ML IV ONE (16:55)
--- NOTE | 2019-05-20 19:29 | ER Document Report ---
ED General - General Chief Complaint: Fainting Stated Complaint: POSSIBLE SYNCOPE Time Seen by Provider: 05/20/19 13:12 Mode of Arrival: Ambulatory TRAVEL OUTSIDE OF THE [place] IN LAST 30 DAYS: No - HPI Notes: 23-year-old female to the emergency department with complaints of an episode of syncope today occurred just prior to arrival. She states that she was at work when she began to feel poorly and lightheaded. She states that her eyes kind of blacked out on her. She states that she has been feeling overall unwell for the past week. She states that she has had a productive cough with green sputum. She states she has had a fever at home of 101. She states that she has had all over body aches as well. She denies any nausea, vomiting, diarrhea. She denies any chest pain, shortness of breath, headaches, abdominal pain. 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 She denies chance of . She has had an episode of syncope when she was a child. She states that she is feeling better. She denies any further complaints. - Related Data Allergies/Adverse Reactions: nitrofurantoin [From Macrobid] Allergy (Verified 05/20/19 12:36) Penicillins Allergy (Verified 05/20/19 12:36) Past Medical History - General Information source: Patient - Social History Smoking Status: Never Smoker Chew tobacco use (# tins/day): No Frequency of alcohol use: None Drug Abuse: None Family History: Reviewed & Not Pertinent Patient has suicidal ideation: No Patient has homicidal ideation: No - Past Medical History Cardiac Medical History: Denies: Hx Coronary Artery Disease, Hx Heart Attack, Hx Hypertension Pulmonary Medical History: Denies: Hx Asthma, Hx Bronchitis, Hx COPD, Hx Pneumonia Neurological Medical History: Denies: Hx Cerebrovascular Accident, Hx Seizures Renal/ Medical History: Reports: Hx Ovarian Cysts - PCOS. Denies: Hx Peritoneal Dialysis GI Medical History: Reports: Hx Ulcer Musculoskeletal Medical History: Denies Hx Arthritis Psychiatric Medical History: Reports: Hx Anxiety, Hx Depression Traumatic Medical History: Reports: Hx Fractures - both arms Past Surgical History: Reports: Hx Appendectomy, Hx Dilation and Curettage, Hx Gynecologic Surgery - D&C 2016, DRAINED CYST ON L OVARY, Hx Oral Surgery - Immunizations Immunizations up to date: Yes Hx Diphtheria, Pertussis, Tetanus Vaccination: Yes Review of Systems - Review of Systems Constitutional: denies: Chills, Fever EENT: Nose congestion, Nose discharge. denies: Throat pain Cardiovascular: Syncope, Lightheaded. denies: Chest pain, Palpitations, Heart racing, Dyspnea, Dizziness Respiratory: See HPI, Cough, Sputum. denies: Short of breath Gastrointestinal: denies: Abdominal pain, Diarrhea, Nausea, Vomiting Genitourinary: No symptoms reported Musculoskeletal: No symptoms reported Skin: No symptoms reported Neurological/Psychological: No symptoms reported -: Yes All other systems reviewed and negative Physical Exam - Vital signs Vitals: Temp Pulse Resp BP Pulse Ox 98.6 F 102 H 16 108/69 100 05/20/19 12:39 05/20/19 12:39 05/20/19 12:39 05/20/19 12:39 05/20/19 12:39 Interpretation: Tachycardic - General General appearance: Appears well, Alert In distress: None - HEENT Head: Normocephalic, Atraumatic Eyes: Normal Pupils: PERRL Ears: Normal External canal: Normal Tympanic membrane: Normal Sinus: Normal Nasal: Normal Mouth/Lips: Normal Mucous membranes: Normal Pharynx: Normal. No: Peritonsillar abscess, Post nasal drainage, Retropharyngeal abscess, Tonsillar hypertrophy, Uvular edema, Potential airway comprom. Neck: Normal. No: Lymphadenopathy - Respiratory Respiratory status: No respiratory distress Chest status: Nontender Breath sounds: Normal Chest palpation: Normal - Cardiovascular Rhythm: Regular Heart sounds: Normal auscultation Murmur: No - Abdominal Inspection: Normal - She is Distension: No distension Bowel sounds: Normal Tenderness: Nontender Organomegaly: No organomegaly - Back Back: Normal, Nontender. No: CVA tenderness - Extremities General upper extremity: Normal inspection, Nontender, Normal color, Normal ROM, Normal temperature General lower extremity: Normal inspection, Nontender, Normal color, Normal ROM, Normal temperature, Normal weight bearing. No: Chasity's sign - Neurological Neuro grossly intact: Yes Cognition: Normal Orientation: AAOx4 Higbee Coma Scale Eye Opening: Spontaneous Cassidy Coma Scale Verbal: Oriented Cassidy Coma Scale Motor: Obeys Commands Higbee Coma Scale Total: 15 Speech: Normal Cranial nerves: Normal. No: Facial palsy, Forehead sparing, Gaze palsy, Sensory deficit, Tongue deviation Cerebellar coordination: Normal, Heel-thoams - Normal [id number] bilaterally. No leg drift.. 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 No: Pronator drift Sensory: Normal - Psychological Associated symptoms: Normal affect, Normal mood - Skin Skin Temperature: Warm Skin Moisture: Dry Skin Color: Normal Course - Re-evaluation Re-evalutation: 05/20/19 Rounded on patient and she is doing well after Toradol and fluids. She states that she feels better and she would like to go home. She has been up and ambulating in the emergency department without any difficulty. Impression: Vasovagal syncope, upper respiratory illness. Discussed patient with Dr. Joseph, ER attending. We discussed her elevated white count as well as her left shift with 1 band. She looks well. She had a heart rate of 102 when she initially came in. She was afebrile. She is not hypotensive. She has been up and walking around in the emergency department and drinking fluids without any difficulty. She is feeling better. Noted chest x-ray but with her history of productive green sputum we will go ahead and cover with doxycycline. Low suspicion for sepsis. We will have her follow with primary care for further management. Patient agrees with the plan. - Vital Signs Vital signs: Temp Pulse Resp BP Pulse Ox 98.6 F 102 H 16 108/69 100 05/20/19 12:39 05/20/19 12:39 05/20/19 12:39 05/20/19 12:39 05/20/19 12:39 - Laboratory Result Diagrams: 05/20/19 13:45 05/20/19 13:45 Laboratory results interpreted by me: 05/20/19 05/20/19 13:45 13:45 WBC 15.2 H Hgb 11.7 L Hct 34.8 L RDW 14.2 H Seg Neuts % (Manual) 90 H Band Neutrophils % 1 L Lymphocytes % (Manual) 6 L Abs Neuts (Manual) 13.8 H Sodium 136.5 L - Diagnostic Test Radiology reviewed: Image reviewed, Reports reviewed - EKG Interpretation by Ri EKG shows normal: Sinus rhythm Rate: Normal Rhythm: NSR When compared to previous EKG there are: Previous EKG unavailable Additional EKG results interpreted by me: 05/20/19 20:22 No STEMI. Rate of 89. Discharge - Discharge Clinical Impression: Productive cough Syncope Qualifiers: Syncope type: vasovagal syncope Qualified Code(s): R55 - Syncope and collapse Upper respiratory infection Qualifiers: URI type: unspecified URI Qualified Code(s): J06.9 - Acute upper respiratory infection, unspecified Condition: Stable Disposition: HOME, SELF-CARE Instructions: Syncopal Episode ([facility]), Upper Respiratory Illness ([facility]) Additional Instructions: Complete all antibiotics. Rest at home. Return if worsening symptoms or repeat episode of passing out. Push fluids. Follow up with primary care on Thursday without fail. Prescriptions: Doxycycline Hyclate 100 mg PO BID #14 capsule Forms: Return to Work Referrals: MAIDA BAUTISTA MD [ACTIVE STAFF] - Follow up in 1 week
[2019-05-20 20:21] VITALS: BP 101/61
--- NOTE | 2019-05-21 19:09 | EKG REPORT ---
SEVERITY:- ABNORMAL ECG - SINUS RHYTHM PROBABLE LEFT ATRIAL ABNORMALITY PROBABLE LEFT VENTRICULAR HYPERTROPHY : Confirmed by: Celia Ramirez MD 21-May-2019 19:09:15
== END 2019-05-20 20:21 | disposition home or self-care (01) ==
LOC: ER 12:35
DX: R55 Syncope and collapse (principal); R05 Cough; J06.9 Acute upper respiratory infection, unspecified
CPT/HCPCS: 93005; 99284; 96361; 96374; 36415; 84703; 85025; 80053; 81001; 71046; 93010; J1885; J7030

== ENCOUNTER 2019-05-23 13:36 | Emergency (ER) | payer BC ==
[2019-05-23] MEDS ORDERED: NORMAL SALINE 1000 ML 1,000 ML IV ONE (14:06)
--- NOTE | 2019-05-23 14:07 | ER Document Report ---
ED Medical Screen (RME) - General Chief Complaint: Near Syncope Stated Complaint: POSSIBLE SYNCOPE Time Seen by Provider: 05/23/19 14:04 TRAVEL OUTSIDE OF THE [place] IN LAST 30 DAYS: No - HPI Notes: 05/23/19 14:18 23-year-old female to the emergency department with complaints of persistent feelings of lightheadedness. She was seen on the here in the department for an episode of syncope. She states that she is continued to feel like she is going to pass out but she has not completely passed out. She states that she is also been monitoring her blood sugar and she notices that the feeling gets worse when her blood sugar is 90 and below. She states that she recently moved down to the area and she was being followed by an hydrology professor. She states that the hydrology professor told her that she might have type 1 diabetes. She does not take any insulin and states that she is never had a blood sugar higher than 120. She also reports a frontal headache today. She admits that she has been vo miting since her last visit. Her last episode of vomiting was Thursday evening. Patient denies any fevers, chills. She states that her legs feel very weak when she is feeling like she is going to syncopized. Typically drinking fluids and/or eating helps her. Performed a medical screening exam on this patient. I saw this patient on May 20 and she did very well while she was here in the emergency department. Her exam today is still the same as it was on the . She is fully neurologically intact. Will trend labs. Did not obtain a head CT when she was here last so we will obtain that today. We will have her further evaluated and managed by [facility] colleague. - Related Data Allergies/Adverse Reactions: nitrofurantoin [From Macrobid] Allergy (Verified 05/23/19 13:42) Penicillins Allergy (Verified 05/23/19 13:42) Past Medical History - Past Medical History Cardiac Medical History: Denies: Hx Coronary Artery Disease, Hx Heart Attack, Hx Hypertension Pulmonary Medical History: Denies: Hx Asthma, Hx Bronchitis, Hx COPD, Hx Pneumonia Neurological Medical History: Denies: Hx Cerebrovascular Accident, Hx Seizures Renal/ Medical History: Reports: Hx Ovarian Cysts - PCOS. Denies: Hx Peritoneal Dialysis GI Medical History: Reports: Hx Ulcer Musculoskeltal Medical History: Denies Hx Arthritis Psychiatric Medical History: Reports: Hx Anxiety, Hx Depression Traumatic Medical History: Reports: Hx Fractures - both arms Past Surgical History: Reports: Hx Appendectomy, Hx Dilation and Curettage, Hx Gynecologic Surgery - D&C 2015, DRAINED CYST ON L OVARY, Hx Oral Surgery - Immunizations Immunizations up to date: Yes Hx Diphtheria, Pertussis, Tetanus Vaccination: Yes History of Influenza Vaccine for 06/2017 - 11/2017 Season: Yes Influenza Administration Date for 06/2017 - 11/2017 Season: 04/28/18 Physical Exam - Vital signs Vitals: Temp Pulse Resp BP Pulse Ox 98.1 F 82 18 115/69 98 05/23/19 13:43 05/23/19 13:43 05/23/19 13:43 05/23/19 13:43 05/23/19 13:43 Course - Vital Signs Vital signs: Temp Pulse Resp BP Pulse Ox 98.1 F 82 18 115/69 98 05/23/19 13:43 05/23/19 13:43 05/23/19 13:43 05/23/19 13:43 05/23/19 13:43
[2019-05-23 14:51] LABS: ABSOLUTE EOSINOPHILS # (AUTO) 0.1 10^3/uL (0.0-0.6); ABSOLUTE LYMPHOCYTES (AUTO) 1.8 10^3/uL (0.5-4.7); ABSOLUTE MONOCYTES (AUTO) 0.7 10^3/uL (0.1-1.4); ABSOLUTE NEUT (AUTO) 3.7 10^3/uL (1.7-8.2); BASOPHILS % (AUTO) 0.6 % (0-2); EOSINOPHILS % (AUTO) 1.7 % (0-6); HEMATOCRIT 38.2 % (36.0-47.0); HEMOGLOBIN 12.9 g/dL (12.0-15.5); LYMPHOCYTES % (AUTO) 28.1 % (13-45); MEAN CORPUSCULAR HEMOGLOBIN 29.6 pg (27.0-33.4); MEAN CORPUSCULAR HGB CONC 33.9 g/dL (32.0-36.0); MEAN CORPUSCULAR VOLUME 87 fl (80-97); MONOCYTES % (AUTO) 10.5 % (3-13); PLATELET COUNT 257 10^3/uL (150-450); RED BLOOD COUNT 4.37 10^6/uL (3.72-5.28); RED CELL DISTRIBUTION WIDTH 14.3 % (11.5-14.0); SEGMENTED NEUTROPHILS % (AUTO) 59.1 % (42-78); TOTAL CELLS COUNTED % (AUTO) 100 %; WHITE BLOOD COUNT 6.3 10^3/uL (4.0-10.5)
--- NOTE | 2019-05-23 15:06 | RADIOLOGY REPORT (SQ) ---
EXAM DESCRIPTION: CT HEAD WITHOUT COMPLETED DATE/TIME: 05/23/2019 2:57 pm REASON FOR STUDY: recurrent syncope COMPARISON: 05/18/2018 TECHNIQUE: Axial images acquired through the brain without intravenous contrast. Images reviewed wi th bone, brain and subdural windows. Additional sagittal and coronal reconstructions were generated. Images stored on PACS. All CT scanners at this facility use dose modulation, iterative reconstruction, and/or weight based d osing when appropriate to reduce radiation dose to as low as reasonably achievable (ALARA). [facility]: Dose Right [facility]: CareDose [facility]: Dose Right [facility]: Teradose 4D [facility]: [employer] RADIATION DOSE: CT Rad equipment meets quality standard of care and radiation dose reduction techniq ues were employed. CTDIvol: 48.6 mGy. DLP: 954 mGy-cm. mGy. LIMITATIONS: None. FINDINGS: VENTRICLES: Normal size and contour. CEREBRUM: No masses. No hemorrhage. No midline shift. No evidence for acute infarction. Normal gra y/white matter differentiation. No areas of low density in the white matter. CEREBELLUM: No masses. No hemorrhage. No alteration of density. No evidence for acute infarction. EXTRAAXIAL SPACES: No fluid collections. No masses. ORBITS AND GLOBE: No intra- or extraconal masses. Normal contour of globe without masses. CALVARIUM: No fracture. PARANASAL SINUSES: No fluid or mucosal thickening. SOFT TISSUES: No mass or hematoma. OTHER: No other significant finding. IMPRESSION: NORMAL BRAIN CT WITHOUT CONTRAST. EVIDENCE OF ACUTE STROKE: NO. COMMENT: Quality ID # [id number]: Final reports with documentation of one or more dose reduction techniques (e.g., Automated exposure control, adjustment of the mA and/or kV according to patient size, use of iterative reconstruction technique) TECHNICAL DOCUMENTATION: JOB ID: [id number] [employer]- All Rights Reserved Reading location - IP/workstation name: [email or web address]
--- NOTE | 2019-05-23 15:07 | ER Document Report ---
ED General - General Chief Complaint: Near Syncope Stated Complaint: POSSIBLE SYNCOPE Time Seen by Provider: 05/23/19 14:04 TRAVEL OUTSIDE OF THE U.[place]. IN LAST 30 DAYS: No - HPI Notes: Patient presents with intermittent episodes of feeling lightheaded when the pass out. She states that she was at work when she passed out on Thursday and she said her lips felt numb and tingly at that time. She has no known medical problems. She is on Paxil since November is here for depression. She does not otherwise take any medications. She has an upper respiratory infection at this time and nasal congestion - Related Data Allergies/Adverse Reactions: nitrofurantoin [From Macrobid] Allergy (Verified 05/23/19 13:42) Penicillins Allergy (Verified 05/23/19 13:42) Past Medical History - Social History Smoking Status: Current Every Day Smoker Frequency of alcohol use: None Drug Abuse: None Family History: Reviewed & Not Pertinent Patient has suicidal ideation: No Patient has homicidal ideation: No - Past Medical History Cardiac Medical History: Denies: Hx Coronary Artery Disease, Hx Heart Attack, Hx Hypertension Pulmonary Medical History: Denies: Hx Asthma, Hx Bronchitis, Hx COPD, Hx Pneumonia Neurological Medical History: Denies: Hx Cerebrovascular Accident, Hx Seizures Renal/ Medical History: Reports: Hx Ovarian Cysts - PCOS. Denies: Hx Perit echols Dialysis GI Medical History: Reports: Hx Ulcer Musculoskeletal Medical History: Denies Hx Arthritis Psychiatric Medical History: Reports: Hx Anxiety, Hx Depression Traumatic Medical History: Reports: Hx Fractures - both arms Past Surgical History: Reports: Hx Appendectomy, Hx Dilation and Curettage, Hx Gynecologic Surgery - D&C 2015, DRAINED CYST ON L OVARY, Hx Oral Surgery - Immunizations Immunizations up to date: Yes Hx Diphtheria, Pertussis, Tetanus Vaccination: Yes Review of Systems - Review of Systems Constitutional: No symptoms reported EENT: No symptoms reported Cardiovascular: No symptoms reported Respiratory: No symptoms reported Gastrointestinal: No symptoms reported Genitourinary: No symptoms reported Female Genitourinary: No symptoms reported Musculoskeletal: No symptoms reported Skin: No symptoms reported Hematologic/Lymphatic: No symptoms reported Neurological/Psychological: See HPI Physical Exam - Vital signs Vitals: Temp Pulse Resp BP Pulse Ox 98.1 F 82 18 115/69 98 05/23/19 13:43 05/23/19 13:43 05/23/19 13:43 05/23/19 13:43 05/23/19 13:43 - General General appearance: Appears well, Alert - HEENT Head: Normocephalic, Atraumatic Eyes: Normal Conjunctiva: Normal Cornea: Normal Extraocular movements intact: Yes Mucous membranes: Dry - Respiratory Respiratory status: No respiratory distress Chest status: Nontender, Accessory muscle use Chest palpation: Normal - Cardiovascular Rhythm: Regular Heart sounds: Normal auscultation Murmur: No - Abdominal Inspection: Normal Distension: No distension Bowel sounds: Normal - Back Back: Normal, Nontender - Neurological Neuro grossly intact: Yes Cognition: Normal Orientation: AAOx4 Course - Re-evaluation Re-evalutation: 05/23/19 15:48 Negative work-up. Discussed with patient if symptoms were to continue she would need to follow-up with primary care and consideration of Holter monitor. She has no family history suggest any concerning pathology. Refer to Dr. Bautista for reevaluation as needed. Also told her to make sure she stays hydrated drink 6 a glass of water a day to see if these help with her symptoms she did have dry oral mucous membranes on exam. - Vital Signs Vital signs: Temp Pulse Resp BP Pulse Ox 98.1 F 82 18 115/69 98 05/23/19 13:43 05/23/19 13:43 05/23/19 13:43 05/23/19 13:43 05/23/19 13:43 - Laboratory Result Diagrams: 05/23/19 14:30 05/23/19 14:30 Laboratory results interpreted by me: 05/23/19 05/23/19 14:30 14:30 RDW 14.3 H Urine Blood MODERATE H - EKG Interpretation by Al EKG shows normal: Sinus rhythm Rate: Normal Rhythm: NSR - No concerning ST depressions or elevations with normal axis and intervals. No concerning findings for prolonged QTC or Brugada or WPW Discharge - Discharge Clinical Impression: Syncope, near Condition: Good Disposition: HOME, SELF-CARE Instructions: Near Syncopal Episode ([facility]) Additional Instructions: Please establish primary care with referral provided. If symptoms continue despite proper fluid intake may be a candidate for a Holter monitor. Referrals: MAIDA BAUTISTA MD [ACTIVE STAFF] - Follow up as needed
[2019-05-23 15:09] LABS: APPEARANCE,URINE SLIGHTLY-CLOUDY; BILIRUBIN,URINE NEGATIVE (NEGATIVE); COLOR,URINE YELLOW; GLUCOSE, URINE NEGATIVE (NEGATIVE); KETONES,URINE NEGATIVE (NEGATIVE); LEUKOCYTE ESTERASE,URINE NEGATIVE (NEGATIVE); NITRITE,URINE NEGATIVE (NEGATIVE); PROTEIN,URINE NEGATIVE (NEGATIVE); URINE SPECIFIC GRAVITY 1.011; UROBILINOGEN,URINE NEGATIVE mg/dL (<2.0)
[2019-05-23 15:16] LABS: ALBUMIN 4.3 g/dL (3.5-5.0); ALKALINE PHOSPHATASE 83 U/L (38-126); ANION GAP 10 (5-19); ASPARTATE AMINO TRANSFERASE 24 U/L (14-36); BILIRUBIN,DIRECT 0.2 mg/dL (0.0-0.4); BILIRUBIN,TOTAL 0.2 mg/dL (0.2-1.3); BLOOD UREA NITROGEN 9 mg/dL (7-20); CALCIUM 9.5 mg/dL (8.4-10.2); CARBON DIOXIDE 28 mmol/L (22-30); CHLORIDE 102 mmol/L (98-107); GLUCOSE 80 mg/dL (75-110); POTASSIUM 3.7 mmol/L (3.6-5.0); TOTAL PROTEIN 7.4 g/dL (6.3-8.2)
[2019-05-23 16:05] VITALS: BP 112/68
--- NOTE | 2019-05-23 17:30 | EKG REPORT ---
SEVERITY:- NORMAL ECG - SINUS RHYTHM : Confirmed by: Attila Salomon MD 23-May-2019 17:29:44
== END 2019-05-23 16:05 | disposition home or self-care (01) ==
LOC: ER 13:36
DX: R55 Syncope and collapse (principal); R42 Dizziness and giddiness; R09.81 Nasal congestion; Z79.899 Other long term (current) drug therapy; F17.200 Nicotine dependence, unspecified, uncomplicated
CPT/HCPCS: 93005; 36415; 83735; 85025; 80053; 81001; 70450; 93010; J7030; 96360; 99284

== ENCOUNTER → 2019-06-08 | Outpatient (CLI) | payer BC ==
[2019-06-08 10:30] LABS: ABSOLUTE EOSINOPHILS # (AUTO) 0.2 10^3/uL (0.0-0.6); ABSOLUTE MONOCYTES (AUTO) 0.8 10^3/uL (0.1-1.4); ABSOLUTE NEUT (AUTO) 6.9 10^3/uL (1.7-8.2); BASOPHILS % (AUTO) 0.3 % (0-2); EOSINOPHILS % (AUTO) 1.6 % (0-6); HEMATOCRIT 40.4 % (36.0-47.0); HEMOGLOBIN 13.8 g/dL (12.0-15.5); LYMPHOCYTES % (AUTO) 19.9 % (13-45); MEAN CORPUSCULAR HEMOGLOBIN 29.5 pg (27.0-33.4); MEAN CORPUSCULAR HGB CONC 34.1 g/dL (32.0-36.0); MEAN CORPUSCULAR VOLUME 87 fl (80-97); MONOCYTES % (AUTO) 8.4 % (3-13); PLATELET COUNT 251 10^3/uL (150-450); RED BLOOD COUNT 4.66 10^6/uL (3.72-5.28); RED CELL DISTRIBUTION WIDTH 14.1 % (11.5-14.0); SEGMENTED NEUTROPHILS % (AUTO) 69.8 % (42-78); TOTAL CELLS COUNTED % (AUTO) 100 %; WHITE BLOOD COUNT 9.9 10^3/uL (4.0-10.5)
--- NOTE | 2019-06-08 11:03 | RADIOLOGY REPORT (SQ) ---
EXAM DESCRIPTION: CHEST PA/LATERAL COMPLETED DATE/TIME: 06/08/2019 10:10 am REASON FOR STUDY: CHEST PAIN ON BREATHING COMPARISON: PA and lateral views of the chest from 05/20/2019 EXAM PARAMETERS: NUMBER OF VIEWS: two views TECHNIQUE: Digital Frontal and Lateral radiographic views of the chest acquired. RADIATION DOSE: NA LIMITATIONS: none FINDINGS: LUNGS AND PLEURA: No consolidation, pleural effusion or pneumothorax. MEDIASTINUM AND HILAR STRUCTURES: No mediastinal hilar contour abnormality. HEART AND VASCULAR STRUCTURES: Normal cardiac silhouette and pulmonary vasculature. BONES: No acute findings. HARDWARE: None in the chest. OTHER: No other finding. IMPRESSION: No acute cardiopulmonary process. TECHNICAL DOCUMENTATION: JOB ID: [id number] [employer]- All Rights Reserved Reading location - IP/workstation name: GI
--- NOTE | 2019-06-08 15:54 | RADIOLOGY REPORT (SQ) ---
EXAM DESCRIPTION: CTA CHEST COMPLETED DATE/TIME: 06/08/2019 3:12 pm REASON FOR STUDY: R07.1 CHEST PAIN ON BREATHING R07.1 CHEST PAIN ON BREATHING COMPARISON: None. TECHNIQUE: CT scan of the chest performed using helical scanning technique with dynamic intravenous contrast injection. Images reviewed with lung, soft tissue and bone windows. Reconstructed coronal and sagittal MPR images reviewed. Additional 3 dimensional post-processing performed to develop Maximal Intensity Projection images (WI P). All images stored on PACS. All CT scanners at this facility use dose modulation, iterative reconstruction, and/or weight based d osing when appropriate to reduce radiation dose to as low as reasonably achievable (ALARA). [facility]: Dose Right [facility]: CareDose [facility]: Dose Right [facility]: Teradose 4D [facility]: [employer] CONTRAST TYPE AND DOSE: contrast/concentration: Isovue 350.00 mg/ml; Total Contrast Delivered: 55.0 ml; Total Saline Delivered: 75.0 ml Contrast bolus optimized for the pulmonary arteries. Not diagnostic for the aorta. RENAL FUNCTION: GFR > 60. RADIATION DOSE: CT Rad equipment meets quality standard of care and radiation dose reduction techniq ues were employed. CTDIvol: 4.8 - 7.5 mGy. DLP: 219 mGy-cm. . LIMITATIONS: None. FINDINGS: LUNGS AND PLEURA: The trachea and main bronchi are patent. There is no bronchiectasis or mucus plugging. There is no alveolar consolidation. There is no pulmonary nodule or mass. There is no pleural thickening, calcifications or pleural effusion. AORTA AND GREAT VESSELS: Evaluation is limited as the contrast bolus was optimized for evaluation of the pulmonary arteries. There is no thoracic aortic dissection or aneurysm. HEART: No pericardial effusion. No cardiomegaly. PULMONARY ARTERIES: No pulmonary embolus. HILAR AND MEDIASTINAL STRUCTURES: The soft tissue attenuation in the anterior mediastinum is consiste nt with residual thymic tissue. There is no mediastinal or hilar adenopathy. HARDWARE: None in the chest. UPPER ABDOMEN: No acute findings. THYROID AND OTHER SOFT TISSUES: No abnormality. BONES: No acute findings. 3D MIPS: Confirm above findings. OTHER: No other finding. IMPRESSION: No pulmonary embolus. COMMENT: Quality ID # [id number]: Final reports with documentation of one or more dose reduction techniques (e.g., Automated exposure control, adjustment of the mA and/or kV according to patient size, use of iterative reconstruction technique) TECHNICAL DOCUMENTATION: JOB ID: [id number] [facility] [employer]- All Rights Reserved Reading location - IP/workstation name: GI
== END ==
LOC: OD 09:53
PROVIDERS: ATTEND Physician Assistant
DX: R07.1 Chest pain on breathing (principal); R79.89 Other specified abnormal findings of blood chemistry
CPT/HCPCS: 36415; 71046; 71275; 82565; 85025; 85379

== ENCOUNTER 2019-07-14 09:00 | Emergency (ER) | payer BC, OTHER ==
[2019-07-14 10:24] LABS: ABSOLUTE EOSINOPHILS # (AUTO) 0.1 10^3/uL (0.0-0.6); ABSOLUTE LYMPHOCYTES (AUTO) 1.3 10^3/uL (0.5-4.7); ABSOLUTE MONOCYTES (AUTO) 0.4 10^3/uL (0.1-1.4); ABSOLUTE NEUT (AUTO) 3.1 10^3/uL (1.7-8.2); APPEARANCE,URINE SLIGHTLY-CLOUDY; BASOPHILS % (AUTO) 0.8 % (0-2); BILIRUBIN,URINE NEGATIVE (NEGATIVE); COLOR,URINE YELLOW; EOSINOPHILS % (AUTO) 1.8 % (0-6); GLUCOSE, URINE NEGATIVE (NEGATIVE); HEMATOCRIT 42.3 % (36.0-47.0); HEMOGLOBIN 14.2 g/dL (12.0-15.5); KETONES,URINE NEGATIVE (NEGATIVE); LEUKOCYTE ESTERASE,URINE NEGATIVE (NEGATIVE); LYMPHOCYTES % (AUTO) 25.5 % (13-45); MEAN CORPUSCULAR HGB CONC 33.5 g/dL (32.0-36.0); MEAN CORPUSCULAR VOLUME 89 fl (80-97); MONOCYTES % (AUTO) 8.6 % (3-13); NITRITE,URINE NEGATIVE (NEGATIVE); PLATELET COUNT 203 10^3/uL (150-450); PROTEIN,URINE NEGATIVE (NEGATIVE); RED BLOOD COUNT 4.73 10^6/uL (3.72-5.28); RED CELL DISTRIBUTION WIDTH 14.5 % (11.5-14.0); SEGMENTED NEUTROPHILS % (AUTO) 63.3 % (42-78); TOTAL CELLS COUNTED % (AUTO) 100 %; URINE SPECIFIC GRAVITY 1.017; UROBILINOGEN,URINE NEGATIVE mg/dL (<2.0)
[2019-07-14 10:40] LABS: ALBUMIN 5.1 g/dL (3.5-5.0); ALKALINE PHOSPHATASE 72 U/L (38-126); ANION GAP 8 (5-19); ASPARTATE AMINO TRANSFERASE 25 U/L (14-36); BILIRUBIN,DIRECT 0.1 mg/dL (0.0-0.4); BILIRUBIN,TOTAL 0.6 mg/dL (0.2-1.3); BLOOD UREA NITROGEN 8 mg/dL (7-20); CALCIUM 9.9 mg/dL (8.4-10.2); CARBON DIOXIDE 28 mmol/L (22-30); CHLORIDE 104 mmol/L (98-107); CREATINE KINASE 59 U/L (30-135); POTASSIUM 3.9 mmol/L (3.6-5.0); TOTAL PROTEIN 8.6 g/dL (6.3-8.2)
[2019-07-14 10:53] LABS: CREATINE KINASE MB 0.32 ng/mL (<4.55); TROPONIN I 0.014 ng/mL
[2019-07-14 10:55] LABS: GLUCOSE 55 mg/dL (75-110)
[2019-07-14] MEDS ORDERED: NORMAL SALINE 1000 ML 1,000 ML IV ONE (11:24)
--- NOTE | 2019-07-14 12:37 | ER Document Report ---
ED Dizziness/Weakness - General Chief Complaint: Syncope Stated Complaint: SYNCOPE Time Seen by Provider: 07/14/19 11:00 Primary Care Provider: HAN ZUNIGA PA [Primary Care Provider] - Follow up as needed Information source: Patient TRAVEL OUTSIDE OF THE [place] IN LAST 30 DAYS: No - HPI Notes: Patient comes in after syncopal episode. Patient states that she got out of her car and was walking up some steps when she had syncope she fell down and scraped her hands and knees. She does not feel like she went completely unconscious. She states she has had several episodes of passing out since April of this year. She states she never had any episodes prior to that. She has been seeing her primary care doctor and her communication analyst concerning these episodes but there is been no diagnosis yet. She has worn a Holter monitor. Patient states that the episodes occur randomly and suddenly. They do not particularly occur during any time of the day. They are not with exertion. They are not right after standing. She states they could be in the morning or in the evening. She states she has no prodrome. She states currently she feels slightly dizzy but otherwise has no complaints. The dizziness is mild. It is worse with standing and better with lying down. There is no radiation symptoms. She has no shortness of breath. No recent vomiting or diarrhea. She does not believe that she currently is . - Related Data Allergies/Adverse Reactions: nitrofurantoin [From Macrobid] Allergy (Verified 07/14/19 10:03) Penicillins Allergy (Verified 07/14/19 10:03) Past Medical History - General Information source: Patient - Social History Smoking Status: Current Every Day Smoker Chew tobacco use (# tins/day): No Frequency of alcohol use: Occasional Drug Abuse: None Family History: Reviewed & Not Pertinent Patient has suicidal ideation: No Patient has homicidal ideation: No - Past Medical History Cardiac Medical History: Denies: Hx Coronary Artery Disease, Hx Heart Attack, Hx Hypertension Pulmonary Medical History: Denies: Hx Asthma, Hx Bronchitis, Hx COPD, Hx Pneumonia Neurological Medical History: Denies: Hx Cerebrovascular Accident, Hx Seizures Renal/ Medical History: Reports: Hx Ovarian Cysts - PCOS. Denies: Hx Peritoneal Dialysis GI Medical History: Reports: Hx Ulcer Musculoskeletal Medical History: Denies Hx Arthritis Psychiatric Medical History: Reports: Hx Anxiety, Hx Depression Traumatic Medical History: Reports: Hx Fractures - both arms Past Surgical History: Reports: Hx Appendectomy, Hx Dilation and Curettage, Hx Gynecologic Surgery - D&C 2016, DRAINED CYST ON L OVARY, Hx Oral Surgery - Immunizations Immunizations up to date: Yes Hx Diphtheria, Pertussis, Tetanus Vaccination: Yes Review of Systems - Review of Systems Constitutional: denies: Chills, Fever EENT: denies: Blurred vision, Double vision Cardiovascular: denies: Chest pain, Palpitations Respiratory: denies: Cough, Short of breath -: Yes All other systems reviewed and negative Physical Exam - Vital signs Vitals: Temp Pulse Resp BP Pulse Ox 98.1 F 93 14 106/65 99 07/14/19 09:33 07/14/19 09:33 07/14/19 09:33 07/14/19 09:33 07/14/19 09:33 Interpretation: Normal - General General appearance: Appears well, Alert - HEENT Head: Normocephalic, Atraumatic Eyes: Normal Pupils: PERRL - Respiratory Respiratory status: No respiratory distress Chest status: Nontender Breath sounds: Normal Chest palpation: Normal - Cardiovascular Rhythm: Regular Heart sounds: Normal auscultation Murmur: No - Abdominal Inspection: Normal Distension: No distension Bowel sounds: Normal Tenderness: Nontender Organomegaly: No organomegaly - Back Back: Normal, Nontender - Extremities General upper extremity: Normal inspection, Nontender, Normal color, Normal ROM, Normal temperature General lower extremity: Normal inspection, Nontender, Normal color, Normal ROM, Normal temperature, Normal weight bearing. No: Chasity's sign - Neurological Neuro grossly intact: Yes Cognition: Normal Orientation: AAOx4 [place] Coma Scale Eye Opening: Spontaneous [place] Coma Scale Verbal: Oriented [place] Coma Scale Motor: Obeys Commands [place] Coma Scale Total: 15 Speech: Normal Motor strength normal: LUE, RUE, LLE, RLE Sensory: Normal - Psychological Associated symptoms: Normal affect, Normal mood - Skin Skin Temperature: Warm Skin Moisture: Dry Skin Color: Normal Course - Re-evaluation Re-evalutation: 07/14/19 12:35 Patient comes in after some near syncope. EKG is unremarkable laboratories are also unremarkable other than a mildly low glucose but that would not explain the sudden onset of syncope. Patient does have good outpatient follow-up for this. I think it is prudent for patient to continue to follow-up as an outpatient. - Vital Signs Vital signs: Temp Pulse Resp BP Pulse Ox 98.1 F 67 22 H 93/61 L 99 07/14/19 09:33 07/14/19 10:10 07/14/19 11:01 07/14/19 11:01 07/14/19 11:01 - Laboratory Result Diagrams: 07/14/19 10:00 07/14/19 10:00 Laboratory results interpreted by me: 07/14/19 07/14/19 10:00 10:00 RDW 14.5 H Glucose 55 L Total Protein 8.6 H Albumin 5.1 H - EKG Interpretation by Dc EKG shows normal: Sinus rhythm Rate: Normal - 66 Rhythm: NSR [place]/QRS: No: Right axis deviation, Left axis deviation Discharge - Discharge Clinical Impression: Near syncope Condition: Stable Disposition: HOME, SELF-CARE Instructions: Near Syncopal Episode ([facility]) Additional Instructions: Please call your primary care physician as soon as possible to arrange follow-up Referrals: HAN ZUNIGA PA [Primary Care Provider] - Follow up as needed
[2019-07-14 13:42] VITALS: BP 100/57
--- NOTE | 2019-07-15 07:23 | EKG REPORT ---
SEVERITY:- ABNORMAL ECG - SINUS RHYTHM LEFT ATRIAL ABNORMALITY : Confirmed by: Xander Nino 15-Jul-2019 07:21:25
== END 2019-07-14 13:41 | disposition home or self-care (01) ==
LOC: ER 09:00
DX: R55 Syncope and collapse (principal); R42 Dizziness and giddiness; F17.200 Nicotine dependence, unspecified, uncomplicated; Z88.1 Allergy status to other antibiotic agents; Z88.0 Allergy status to penicillin
CPT/HCPCS: 36415; 82553; 82962; 82550; 85025; 81025; 80053; 81001; 84484; 85379; J7030; 93005; 93010; 99284

== ENCOUNTER → 2019-08-11 | Outpatient (CLI) | payer BC, OTHER ==
--- NOTE | 2019-08-11 20:52 | NEURO WORKBENCH EEG REPORT ---
EEG Report Patient: Jack Echols ID: [id number] Referring Doctor: Herrera Lane MD DOS: 08/11/19 Medications: Zoloft, Vitamin D3, Cetirizine, Multivitamins History This is a 24 year old right handed woman with a history of asthma and migraines who has episodes of syncope. This EEG was requested for syncope. EEG Interpretation This EEG was recorded in the awake, drowsy, and sleep states. The awake EEG is characterized by a well-organized background with a well-developed and reactive posterior dominant rhythm of 10.5Hz. The remainder of the background consisted of a mix of mostly alpha with some beta. Drowsiness is characterized by slowing of the background rhythms. Vertex waves and sleep spindles were seen in the midline head regions. Photic stimulation resulted in a good driving response. During sleep there were several arousals. During several of these, there were bursts lasting 1-3 seconds of ~7Hz notched positive waveforms. There were no clinical correlations. These are not specific with the known benign variants but of them are most consistent with 14 and 6 positive spikes/bursts/ctenoids or a hypnopompic variant. EKG showed periods of an irregular rhythm. EEG Classification EKG irregular rhythm EEG Impression This EEG is within normal limits for age. The bursts noted during sleep are of uncertain clinical significance but are most consistent with a benign variant though their features are not classic. If clinically indicated, a repeat EEG study may be considered. The EKG had periods of irregularity that should be further evaluated. INTERPRETING NEUROLOGIST: Jessica Dumont MD, [facility] Board Certified in Neurology, with special qualification in Child Neurology, and in Clinical Neurophysiology [facility]
== END ==
LOC: NEURO 13:05
PROVIDERS: ATTEND Pediatrics
DX: R42 Dizziness and giddiness (principal); R55 Syncope and collapse
CPT/HCPCS: 95819

== ENCOUNTER 2019-10-15 09:09 | Emergency (ER) | payer BC, OTHER ==
[2019-10-15 09:15] VITALS: BP 114/70
--- NOTE | 2019-10-15 09:21 | ER Document Report ---
ED Medical Screen (RME) - General Chief Complaint: OB Problem (<20wks) Stated Complaint: ABDOMINAL PAIN/ Time Seen by Provider: 10/15/19 09:20 Primary Care Provider: HAN ZUNIGA PA [Primary Care Provider] - Follow up as needed TRAVEL OUTSIDE OF THE [place]. IN LAST 30 DAYS: No - HPI Notes: 10/15/19 09:21 Patient is a 24-year-old female G6, P0 approximately 5 to 7 weeks presents complaining of right lower pelvic pain that began over the past day and does not radiate. She has not had any vaginal bleeding. She is able to eat and drink without difficulty. She is urinating normally. No fever. I have treated and performed a rapid initial assessment of this patient. A comprehensive ED assessment and evaluation of the patient, analysis of test results and completion of medical decision making process will be conducted by additional ED providers. PHYSICAL EXAMINATION: GENERAL: Well-appearing, well-nourished and in no acute distress. A&Ox4. Answe rs questions appropriately. - Related Data Allergies/Adverse Reactions: nitrofurantoin [From Macrobid] Allergy (Verified 07/14/19 10:03) Penicillins Allergy (Verified 07/14/19 10:03) Past Medical History - Past Medical History Cardiac Medical History: Denies: Hx Coronary Artery Disease, Hx Heart Attack, Hx Hypertension Pulmonary Medical History: Denies: Hx Asthma, Hx Bronchitis, Hx COPD, Hx Pneumonia Neurological Medical History: Denies: Hx Cerebrovascular Accident, Hx Seizures Renal/ Medical History: Reports: Hx Ovarian Cysts - PCOS. Denies: Hx Peritoneal Dialysis GI Medical History: Reports: Hx Ulcer Musculoskeltal Medical History: Denies Hx Arthritis Psychiatric Medical History: Reports: Hx Anxiety, Hx Depression Traumatic Medical History: Reports: Hx Fractures - both arms Past Surgical History: Reports: Hx Appendectomy, Hx Dilation and Curettage, Hx Gynecologic Surgery - D&C 2016, DRAINED CYST ON L OVARY, Hx Oral Surgery - Immunizations Immunizations up to date: Yes Hx Diphtheria, Pertussis, Tetanus Vaccination: Yes Physical Exam - Vital signs Vitals: Temp Pulse Resp BP Pulse Ox 98.2 F 100 20 114/70 100 10/15/19 09:14 10/15/19 09:14 10/15/19 09:14 10/15/19 09:14 10/15/19 09:14 Course - Vital Signs Vital signs: Temp Pulse Resp BP Pulse Ox 98.2 F 100 20 114/70 100 10/15/19 09:14 10/15/19 09:14 10/15/19 09:14 10/15/19 09:14 10/15/19 09:14 Doctor's Discharge - Discharge Referrals: HAN ZUNIGA PA [Primary Care Provider] - Follow up as needed
[2019-10-15 09:50] LABS: ABSOLUTE EOSINOPHILS # (AUTO) 0.1 10^3/uL (0.0-0.6); ABSOLUTE LYMPHOCYTES (AUTO) 1.2 10^3/uL (0.5-4.7); ABSOLUTE MONOCYTES (AUTO) 0.5 10^3/uL (0.1-1.4); ABSOLUTE NEUT (AUTO) 6.1 10^3/uL (1.7-8.2); BASOPHILS % (AUTO) 0.3 % (0-2); EOSINOPHILS % (AUTO) 0.8 % (0-6); HEMATOCRIT 40.2 % (36.0-47.0); HEMOGLOBIN 13.8 g/dL (12.0-15.5); MEAN CORPUSCULAR HEMOGLOBIN 30.4 pg (27.0-33.4); MEAN CORPUSCULAR HGB CONC 34.3 g/dL (32.0-36.0); MEAN CORPUSCULAR VOLUME 89 fl (80-97); MONOCYTES % (AUTO) 6.6 % (3-13); PLATELET COUNT 203 10^3/uL (150-450); RED BLOOD COUNT 4.54 10^6/uL (3.72-5.28); SEGMENTED NEUTROPHILS % (AUTO) 77.3 % (42-78); TOTAL CELLS COUNTED % (AUTO) 100 %; WHITE BLOOD COUNT 7.8 10^3/uL (4.0-10.5)
[2019-10-15 09:51] LABS: APPEARANCE,URINE SLIGHTLY-CLOUDY; BILIRUBIN,URINE NEGATIVE (NEGATIVE); COLOR,URINE YELLOW; GLUCOSE, URINE NEGATIVE (NEGATIVE); KETONES,URINE NEGATIVE (NEGATIVE); PROTEIN,URINE 100 mg/dL (NEGATIVE); URINE SPECIFIC GRAVITY 1.016; UROBILINOGEN,URINE NEGATIVE mg/dL (<2.0)
[2019-10-15 10:08] LABS: ALBUMIN 4.5 g/dL (3.5-5.0); ALKALINE PHOSPHATASE 66 U/L (38-126); ANION GAP 9 (5-19); ASPARTATE AMINO TRANSFERASE 22 U/L (14-36); BILIRUBIN,DIRECT 0.2 mg/dL (0.0-0.4); BILIRUBIN,TOTAL 0.5 mg/dL (0.2-1.3); BLOOD UREA NITROGEN 11 mg/dL (7-20); CALCIUM 9.6 mg/dL (8.4-10.2); CARBON DIOXIDE 27 mmol/L (22-30); CHLORIDE 102 mmol/L (98-107); GLUCOSE 80 mg/dL (75-110); POTASSIUM 4.2 mmol/L (3.6-5.0); TOTAL PROTEIN 7.8 g/dL (6.3-8.2)
--- NOTE | 2019-10-15 10:23 | RADIOLOGY REPORT (SQ) ---
EXAM DESCRIPTION: U/S OB TRANSVAG W/DOPPLER COMPLETED DATE/TIME: 10/15/2019 10:08 am REASON FOR STUDY: Rt pelvic pain, approx 5-7wks preg COMPARISON: None. TECHNIQUE: Transvaginal static and realtime grayscale images acquired of the pelvis. Additional aishwarya cted spectral and color Doppler images recorded. All images stored on PACs. CLINICAL AGE: 4 weeks 5 days BHCG: Pending. LIMITATIONS: None. FINDINGS: UTERUS: No visualized intrauterine . RIGHT ADNEXA: Normal ovary with normal vascular flow. 4 cm simple appearing cyst. Adjacent solid lesion measuring 2.7 cm with internal echogenic posterior shadowing. Not hypervascular. Not the typical appearance for ectopic but not excluded. LEFT ADNEXA: Normal ovary with normal vascular flow. No adnexal free fluid. No adnexal masses. FREE FLUID: Moderate. OTHER: No other significant finding. IMPRESSION: NO VISUALIZED INTRA- OR EXTRAUTERINE . bHCG LEVEL NOT AVAILABLE FOR CORRELATION WITH US FINDINGS. ECTOPIC CANNOT BE EXCLUDED. FOLLOW-UP ULTRASOUND AND SERIAL BHCG LEVELS STRONGLY RECOMMENDED TO ACCURATELY ASSESS STATU S. TECHNICAL DOCUMENTATION: JOB ID: [id number] [employer]- All Rights Reserved Reading location - IP/workstation name: [email or web address]
--- NOTE | 2019-10-15 11:27 | ER Document Report ---
ED General - General Chief Complaint: Abdominal Cramping Stated Complaint: ABDOMINAL PAIN/ Time Seen by Provider: 10/15/19 09:20 Primary Care Provider: HAN ZUNIGA PA [Primary Care Provider] - Follow up in 3-5 days Notes: 24-year-old G6, P0 approximately 4 weeks female presents for right lower pelvic cramping. Patient states she was walking her dog when he ran after some squirrels causing her to fall. Patient states her other dog ran over her. Patient denies any vaginal bleeding, abdominal pain, vaginal discharge, fever. Patient states based off her LMP she is approximately 4 weeks . Patient states she has set up an appointment with women[facility] clinic in October. TRAVEL OUTSIDE OF THE [place] IN LAST 30 DAYS: No - Related Data Allergies/Adverse Reactions: nitrofurantoin [From Macrobid] Allergy (Verified 07/14/19 10:03) Penicillins Allergy (Verified 07/14/19 10:03) Past Medical History - General Last Menstrual Period: 09/12/2019 - Social History Smoking Status: Never Smoker Chew tobacco use (# tins/day): No Frequency of alcohol use: None Drug Abuse: None Family History: Reviewed & Not Pertinent Patient has suicidal ideation: No Patient has homicidal ideation: No - Past Medical History Cardiac Medical History: Denies: Hx Coronary Artery Disease, Hx Heart Attack, Hx Hypertension Pulmonary Medical History: Denies: Hx Asthma, Hx Bronchitis, Hx COPD, Hx Pneumonia Neurological Medical History: Denies: Hx Cerebrovascular Accident, Hx Seizures Renal/ Medical History: Reports: Hx Ovarian Cysts - PCOS. Denies: Hx Peritoneal Dialysis GI Medical History: Reports: Hx Ulcer Musculoskeletal Medical History: Denies Hx Arthritis Psychiatric Medical History: Reports: Hx Anxiety, Hx Depression Traumatic Medical History: Reports: Hx Fractures - both arms Past Surgical History: Reports: Hx Appendectomy, Hx Dilation and Curettage, Hx Gynecologic Surgery - D&C 2016, DRAINED CYST ON L OVARY, Hx Oral Surgery - Immunizations Immunizations up to date: Yes Hx Diphtheria, Pertussis, Tetanus Vaccination: Yes Review of Systems - Review of Systems Notes: Constitutional: Negative for fever. HENT: Negative for sore throat. Eyes: Negative for visual changes. Cardiovascular: Negative for chest pain. Respiratory: Negative for shortness of breath. Gastrointestinal: Positive for pelvic cramping. Negative for abdominal pain, vomiting or diarrhea. Genitourinary: Negative for dysuria. Musculoskeletal: Negative for back pain. Skin: Negative for rash. Neurological: Negative for headaches, weakness or numbness. 10 point ROS negative except as marked above and in HPI. Physical Exam - Vital signs Vitals: Temp Pulse Resp BP Pulse Ox 98.2 F 100 20 114/70 100 10/15/19 09:14 10/15/19 09:14 10/15/19 09:14 10/15/19 09:14 10/15/19 09:14 - Notes Notes: GENERAL: Well-appearing, well-nourished and in no acute distress. HEAD: Atraumatic, normocephalic. EYES: Extraocular movements intact, sclera anicteric, conjunctiva are normal. NECK: Normal range of motion, supple without lymphadenopathy or JVD. LUNGS: Breath sounds clear to auscultation bilaterally and equal. No wheezes rales or rhonchi. HEART: Regular rate and rhythm without murmurs, rubs or gallops. ABDOMEN: Soft, nontender.. No guarding, no rebound. No masses appreciated. No abrasions or contusions. PELVIC: DECLINED EXTREMITIES: Normal range of motion, no pitting or edema. No clubbing or cyanosis. NEUROLOGICAL: Cranial nerves II through XII grossly intact. Normal speech, normal gait. PSYCH: Normal mood, normal affect. SKIN: Warm, Dry, normal turgor, no rashes or lesions noted. Course - Re-evaluation Re-evalutation: 10/15/19 24-year-old female presents with pelvic cramping. Pre-patient is approximately 4 weeks based off her of her LMP. Patient is G6, P0. Patient denies any vaginal bleeding. Patient declined pelvic. Abdomen soft nontender. PE is otherwise unremarkable. No abrasions or contusions noted. Patient's ultrasound is nonconclusive and shows no IUP or extrauterine . Patient's beta-hCG is 185.90. Patient given strict return precautions. Patient is to return to ER or follow-up with her [employer]ELOPER in 48 hours for repeat beta-hCG. Patient also given close follow-up with ADULT SPECIALIST. Patient voices understanding and agrees with plan of care. - Vital Signs Vital signs: Temp Pulse Resp BP Pulse Ox 98.2 F 100 20 114/70 100 10/15/19 09:14 10/15/19 09:14 10/15/19 09:14 10/15/19 09:14 10/15/19 09:14 - Laboratory Result Diagrams: 10/15/19 09:38 10/15/19 09:38 Laboratory results interpreted by me: 10/15/19 10/15/19 09:35 09:38 Beta HCG, Quant 185.90 H Urine Protein 100 H Discharge - Discharge Clinical Impression: right lower pelvic pain Qualifiers: Weeks of gestation: less than 8 weeks Qualified Code(s): Z3A.01 - Less than 8 weeks gestation of Condition: Stable Disposition: HOME, SELF-CARE Additional Instructions: Your beta-hCG is 185.90 today. Your lab work was otherwise unremarkable. Please follow-up with your ADULT SPECIALIST or with the ER in 48 hours for repeat beta- hCG. Please follow-up with your ADULT SPECIALIST in 3 to 5 days. Return to ER for any worsening symptoms, including vaginal bleeding, increased pelvic pain, increased abdominal pain, fever, nausea/vomiting, chest pain, shortness of breath, or any other symptoms that are concerning to you. Referrals: HAN ZUNIGA PA [Primary Care Provider] - Follow up in 3-5 days
== END 2019-10-15 11:36 | disposition home or self-care (01) ==
LOC: ER 09:09
DX: O26.91 Pregnancy related conditions, unspecified, first trimester (principal); R10.30 Lower abdominal pain, unspecified; R10.2 Pelvic and perineal pain; W18.39XA Other fall on same level, initial encounter; Y93.K1 Activity, walking an animal; Z88.0 Allergy status to penicillin; Z3A.01 Less than 8 weeks gestation of pregnancy
CPT/HCPCS: 36415; 76817; 80053; 81001; 84702; 85025; 93976; 99284

== ENCOUNTER 2019-10-17 10:15 | Emergency (ER) | payer BC, OTHER ==
[2019-10-17 10:24] VITALS: BP 109/58
--- NOTE | 2019-10-17 10:26 | ER Document Report ---
HPI - HPI Time Seen by Provider: 10/17/19 10:19 Notes: Patient is a 24-year-old female G6, P0 approximately 4 weeks by gestation who presents for repeat hCG quantitative. She was seen a couple days ago and had a very low hCG count at that time. Patient states that she does continue to have intermittent pelvic cramping, but not having any bleeding or discharge. She is able to eat and drink without difficulty. She is urinating normally and having normal bowel movements. She does have an appointment set up with [facility] in the next few weeks. Denies any headache, fever, neck pain, URI, sore throat, chest pain, palpitations, syncope, cough, shortness of breath, wheeze, dyspnea, abdominal pain, nausea/vomiting/diarrhea, urinary retention, dysuria, hematuria, or rash. - ROS Systems Reviewed and Negative: Yes All other systems reviewed and negative - REPRODUCTIVE Reproductive: DENIES: : Past Medical History - Social History Smoking Status: Unknown if Ever Smoked Family History: Reviewed & Not Pertinent - Past Medical History Cardiac Medical History: Denies: Hx Coronary Artery Disease, Hx Heart Attack, Hx Hypertension Pulmonary Medical History: Denies: Hx Asthma, Hx Bronchitis, Hx COPD, Hx Pneumonia Neurological Medical History: Denies: Hx Cerebrovascular Accident, Hx Seizures Renal/ Medical History: Reports: Hx Ovarian Cysts - PCOS. Denies: Hx Peritoneal Dialysis GI Medical History: Reports: Hx Ulcer Musculoskeletal Medical History: Denies Hx Arthritis Psychiatric Medical History: Reports: Hx Anxiety, Hx Depression Traumatic Medical History: Reports: Hx Fractures - both arms Past Surgical History: Reports: Hx Appendectomy, Hx Dilation and Curettage, Hx Gynecologic Surgery - D&C 2015, DRAINED CYST ON L OVARY, Hx Oral Surgery - Immunizations Immunizations up to date: Yes Hx Diphtheria, Pertussis, Tetanus Vaccination: Yes Vertical Provider Document - CONSTITUTIONAL Agree With Documented VS: Yes Notes: PHYSICAL EXAMINATION: GENERAL: Well-appearing, well-nourished and in no acute distress. LUNGS: Breath sounds clear to auscultation bilaterally and equal. No wheezes rales or rhonchi. HEART: Regular rate and rhythm without murmurs, rubs, gallops. ABDOMEN: Soft, nontender, nondistended abdomen. No guarding, no rebound. Normal bowel sounds present. No CVA tenderness bilaterally. Musculoskeletal: FROM to passive/active. Strength 5+/5. Extremities: No cyanosis, clubbing, or edema b/l. Peripheral pulses 2+. Capillary refill less than 3 seconds. NEUROLOGICAL: Normal speech, normal gait. PSYCH: Normal mood, normal affect. SKIN: Warm, Dry, normal turgor, no rashes or lesions noted. - INFECTION CONTROL TRAVEL OUTSIDE OF THE [place] IN LAST 30 DAYS: No Course - Re-evaluation Re-evalutation: 10/17/19 Patient is an afebrile, well-hydrated, 24-year-old female who presents to the ED with early . Vitals are acceptable without any significant tachycardia, tachypnea, or hypoxia. PE is otherwise unremarkable. HCG increased appropriately. Patient is nontoxic-appearing is tolerating p.o. without any difficulties. No other labs or imaging warranted at this time based on H&P. Low suspicion/risk for acute appendicitis, bowel obstruction, acute cholecystitis, acute cholangitis, perforated diverticulitis, incarcerated hernia, pancreatitis, perforated ulcer, peritonitis, sepsis, pelvic inflammatory disease, tubo-ovarian abscess, ovarian torsion, or other systemic emergent condition at this time. Pt is aware that we cannot adequately assess for ectopic at this time and will watch for localized pain at home. Patient is otherwise aware that her condition can change from initial presentation and she needs to monitor symptoms closely and seek medical attention if any acute changes. Recheck HCG 1 week (may do with health dpt/ OBGYN/PCM), may need repeat US in the near future especially with localized unilateral pelvic pain. Conservative measures otherwise for symptoms. Recheck with your PCM/OBGYN/health dpt in 3-5 days. Return to the ED with any worsening/concerning symptoms otherwise as reviewed in discharge. Patient is in agreement. Discharge - Discharge Clinical Impression: Early stage of Condition: Stable Disposition: HOME, SELF-CARE Additional Instructions: Consider having your HCG rechecked in another week with PCM/Health dpt/OBGYN. Consider another ultrasound with any bleeding or unilateral/severe pelvic pain as we cannot rule out an ectopic . Maintain fluid intake Proper hygienic technique Keep the skin clean Tylenol as needed F/u with your PCM/OBGYN/Health department in 3-5 days for a recheck Return to the ED with any development of MCDOWELL/fever, trouble with vision, eye redness, worsening pain, urethral discharge, urinary retention, blood in the urine, flank pain, abdominal pain, n/v, Chest Pain, shortness of breath, joint pains, trouble breathing, or any other worsening/concerning symptoms as needed otherwise. Referrals: HAN ZUNIGA PA [Primary Care Provider] - Follow up as needed [facility] [Provider Group] - Follow up as needed [facility] [NO LOCAL MD] - Follow up in 3-5 days
== END 2019-10-17 12:05 | disposition home or self-care (01) ==
LOC: ER 10:15
DX: O26.91 Pregnancy related conditions, unspecified, first trimester (principal); R10.2 Pelvic and perineal pain; Z3A.01 Less than 8 weeks gestation of pregnancy
CPT/HCPCS: 36415; 84702; 99282

== ENCOUNTER 2020-03-02 09:21 | Outpatient (CLI) | payer BC, OTHER ==
[2020-03-02 10:21] LABS: BACTERIA (WET MOUNT) 4+ BACTERIA SEEN; T.VAGINALIS (WET MOUNT) NO TRICHOMONAS SEEN; WBCS (WET MOUNT) 2+ WBCS SEEN; YEAST (WET MOUNT) NO YEAST SEEN
[2020-03-02 10:22] LABS: EPITHELIALS (WET MOUNT) 4+ EPITHELIALS SEEN
[2020-03-02 10:25] LABS: APPEARANCE,URINE SLIGHTLY-CLOUDY; BILIRUBIN,URINE NEGATIVE (NEGATIVE); COLOR,URINE YELLOW; GLUCOSE, URINE NEGATIVE (NEGATIVE); KETONES,URINE NEGATIVE (NEGATIVE); LEUKOCYTE ESTERASE,URINE NEGATIVE (NEGATIVE); NITRITE,URINE NEGATIVE (NEGATIVE); PROTEIN,URINE NEGATIVE (NEGATIVE); URINE SPECIFIC GRAVITY 1.015; UROBILINOGEN,URINE NEGATIVE mg/dL (<2.0)
[2020-03-02 10:40] LABS: URINE AMPHETAMINES SCREEN NEGATIVE; URINE BARBITURATES SCREEN NEGATIVE; URINE BENZODIAZEPINES SCREEN NEGATIVE; URINE COCAINE SCREEN NEGATIVE; URINE MARIJUANA (THC) SCREEN NEGATIVE; URINE METHADONE SCREEN NEGATIVE; URINE PHENCYCLIDINE SCREEN NEGATIVE
[2020-03-02 13:30] LABS: CHLAM PCR NOT DETECTED (NOT DETECT)
== END 2020-03-02 10:54 | disposition home or self-care (01) ==
LOC: LC 09:21
PROVIDERS: ATTEND Obstetrics & Gynecology
DX: Z34.92 Encounter for supervision of normal pregnancy, unspecified, second trimester (principal); Z3A.23 23 weeks gestation of pregnancy
CPT/HCPCS: 59899; 87210; 81001; 80307; 87491; 87591; Q0114

== ENCOUNTER 2020-04-23 16:01 | Outpatient (CLI) | payer BC, OTHER ==
[2020-04-23] MEDS ORDERED: RINGERS SOLUTION,LACTATED 1,000 ML IV ONE (16:29)
[2020-04-23 17:02] LABS: APPEARANCE,URINE SLIGHTLY-CLOUDY; BILIRUBIN,URINE NEGATIVE (NEGATIVE); COLOR,URINE YELLOW; GLUCOSE, URINE NEGATIVE (NEGATIVE); KETONES,URINE NEGATIVE (NEGATIVE); LEUKOCYTE ESTERASE,URINE NEGATIVE (NEGATIVE); NITRITE,URINE NEGATIVE (NEGATIVE); PROTEIN,URINE NEGATIVE (NEGATIVE); URINE SPECIFIC GRAVITY 1.023; UROBILINOGEN,URINE NEGATIVE mg/dL (<2.0)
[2020-04-23 17:23] LABS: URINE AMPHETAMINES SCREEN NEGATIVE; URINE BARBITURATES SCREEN NEGATIVE; URINE BENZODIAZEPINES SCREEN NEGATIVE; URINE COCAINE SCREEN NEGATIVE; URINE MARIJUANA (THC) SCREEN NEGATIVE; URINE METHADONE SCREEN NEGATIVE; URINE PHENCYCLIDINE SCREEN NEGATIVE
--- NOTE | 2020-04-23 19:10 | RADIOLOGY REPORT (SQ) ---
EXAM DESCRIPTION: U/S OB LIMITED IMAGES COMPLETED DATE/TIME: 04/23/2020 6:59 pm REASON FOR STUDY: Cervical Length COMPARISON: None. TECHNIQUE: Limited transabdominal grayscale ultrasound for evaluation of specific requested obstetri shashi parameters. LIMITATIONS: None. FINDINGS: CERVICAL LENGTH: 3.2 cm. Closed. STEPHANIE: 21.3 cm (vernix present). LVP---6.0 cm x 10.0 cm. FHR: 150 beats per minute. PRESENTATION: Breech. PLACENTA: Anterior. ANATOMY: Not assessed OTHER: No other significant findings. IMPRESSION: 1. LIMITED OBSTETRICAL ULTRASOUND WITH MEASURED PARAMETERS DELINEATED ABOVE. Trimester of : Third trimester - 28 weeks to delivery. TECHNICAL DOCUMENTATION: JOB ID: [id number] [employer]- All Rights Reserved Reading location - IP/workstation name: [email or web address]
== END 2020-04-23 19:21 | disposition home or self-care (01) ==
LOC: LC 16:01
PROVIDERS: ATTEND Obstetrics & Gynecology
DX: O26.893 Other specified pregnancy related conditions, third trimester (principal); E86.0 Dehydration; Z3A.31 31 weeks gestation of pregnancy; Z02.83 Encounter for blood-alcohol and blood-drug test
CPT/HCPCS: 76815; 80307; 81001

== ENCOUNTER 2020-05-08 19:28 | Outpatient (CLI) | payer BC, OTHER ==
[2020-05-08 20:48] LABS: APPEARANCE,URINE CLEAR; BILIRUBIN,URINE NEGATIVE (NEGATIVE); COLOR,URINE STRAW; GLUCOSE, URINE NEGATIVE (NEGATIVE); KETONES,URINE NEGATIVE (NEGATIVE); LEUKOCYTE ESTERASE,URINE NEGATIVE (NEGATIVE); NITRITE,URINE NEGATIVE (NEGATIVE); PROTEIN,URINE NEGATIVE (NEGATIVE); URINE SPECIFIC GRAVITY 1.003; UROBILINOGEN,URINE NEGATIVE mg/dL (<2.0)
[2020-05-08 21:10] LABS: URINE BARBITURATES SCREEN NEGATIVE; URINE BENZODIAZEPINES SCREEN NEGATIVE; URINE COCAINE SCREEN NEGATIVE; URINE MARIJUANA (THC) SCREEN NEGATIVE; URINE METHADONE SCREEN NEGATIVE; URINE PHENCYCLIDINE SCREEN NEGATIVE
[2020-05-08 21:12] LABS: URINE AMPHETAMINES SCREEN NEGATIVE
--- NOTE | 2020-05-08 21:24 | Non Stress Test Report ---
Non Stress Test Datetime Report Generated by CPN: 05/08/2020 21:24 DEMOGRAPHIC EGA NST: 33.3 INDICATION Indication for Study (NST) Other: Labor check suspected ROM MONITORING Time on Monitor: 05/08/2020 19:30 NST INTERVENTIONS NST Interventions: None BABY A: [id number] BABY A Movement : Present Contraction Frequency : irregular FHR Baseline : 140 Accelerations : 15X15 Decelerations : None Variability : Moderate 6-25bpm (Annotations: Data stored by CPN on behalf of user) NST Review: Meets Criteria for Reactive NST NST Review and Verified By : EJilek RN NST Results: Reactive NST REPORT Report Trigger: Send Report
== END 2020-05-08 20:34 | disposition home or self-care (01) ==
LOC: LC 19:28
PROVIDERS: ATTEND Obstetrics & Gynecology
DX: O47.03 False labor before 37 completed weeks of gestation, third trimester (principal); Z3A.33 33 weeks gestation of pregnancy; Z02.83 Encounter for blood-alcohol and blood-drug test
CPT/HCPCS: 59025; 80307; 81001; 84112

== ENCOUNTER 2020-05-20 20:01 | Outpatient (CLI) | payer BC, OTHER ==
[2020-05-20 21:02] LABS: APPEARANCE,URINE CLEAR; BILIRUBIN,URINE NEGATIVE (NEGATIVE); COLOR,URINE YELLOW; GLUCOSE, URINE NEGATIVE (NEGATIVE); KETONES,URINE NEGATIVE (NEGATIVE); LEUKOCYTE ESTERASE,URINE NEGATIVE (NEGATIVE); NITRITE,URINE NEGATIVE (NEGATIVE); PROTEIN,URINE NEGATIVE (NEGATIVE); URINE SPECIFIC GRAVITY 1.005; UROBILINOGEN,URINE NEGATIVE mg/dL (<2.0)
[2020-05-20 21:21] LABS: URINE AMPHETAMINES SCREEN NEGATIVE; URINE BARBITURATES SCREEN NEGATIVE
[2020-05-20 21:25] LABS: URINE COCAINE SCREEN NEGATIVE; URINE METHADONE SCREEN NEGATIVE; URINE PHENCYCLIDINE SCREEN NEGATIVE
--- NOTE | 2020-05-20 21:27 | Non Stress Test Report ---
Non Stress Test Datetime Report Generated by CPN: 05/20/2020 21:27 DEMOGRAPHIC EGA NST: 35.1 INDICATION Indication for Study (NST) Other: lc VITAL SIGNS Temperature - NST: 98.0 Pulse - NST: 94 RESP - NST: 16 NBPSYS NST: 105 NBPDIA NST: 65 MONITORING Monitor Explained: Monitor Explained; Test Explained; Patient Verbalized Understanding Time on Monitor: 05/20/2020 20:13 Time off Monitor: 05/20/2020 21:14 NST Duration: 61 NST INTERVENTIONS NST Interventions: PO Hydration; Reposition Patient Physician Notified NST: Dr Kennedy BABY A: [id number] BABY A Movement : Present Contraction Frequency : 0 FHR Baseline : 130 Accelerations : 15X15 Decelerations : None Variability : Moderate 6-25bpm NST Review: Meets Criteria for Reactive NST NST Review and Verified By : Indira Holly RN NST Results: Reactive NST REPORT Report Trigger: Send Report
[2020-05-20 21:48] LABS: URINE BENZODIAZEPINES SCREEN NEGATIVE; URINE MARIJUANA (THC) SCREEN NEGATIVE
== END 2020-05-20 21:20 | disposition home or self-care (01) ==
LOC: LC 20:01
PROVIDERS: ATTEND Obstetrics & Gynecology
DX: O47.1 False labor at or after 37 completed weeks of gestation (principal); Z3A.35 35 weeks gestation of pregnancy; Z02.83 Encounter for blood-alcohol and blood-drug test
CPT/HCPCS: 59025; 80307; 81005

== ENCOUNTER 2020-05-31 09:02 | Outpatient (CLI) | payer BC, OTHER ==
[2020-05-31] MEDS ORDERED: ACETAMINOPHEN 325 MG TABLET PO ONE (09:35)
[2020-05-31] MEDS ORDERED: ACETAMINOPHEN 325 MG TABLET ONE (09:37)
[2020-05-31] MEDS ORDERED: RINGERS SOLUTION,LACTATED 1,000 ML IV PRN (10:17)
[2020-05-31 10:42] LABS: APPEARANCE,URINE SLIGHTLY-CLOUDY; BILIRUBIN,URINE NEGATIVE (NEGATIVE); COLOR,URINE YELLOW; GLUCOSE, URINE NEGATIVE (NEGATIVE); KETONES,URINE NEGATIVE (NEGATIVE); LEUKOCYTE ESTERASE,URINE TRACE (NEGATIVE); NITRITE,URINE NEGATIVE (NEGATIVE); PROTEIN,URINE NEGATIVE (NEGATIVE); URINE SPECIFIC GRAVITY 1.006; UROBILINOGEN,URINE NEGATIVE mg/dL (<2.0)
--- NOTE | 2020-05-31 10:43 | Non Stress Test Report ---
Non Stress Test Datetime Report Generated by CPN: 05/31/2020 10:43 DEMOGRAPHIC Test Number: 1 EGA NST: 36.5 INDICATION Indication for Study (NST) Other: iup 36.5 ctx. MONITORING Monitor Explained: Monitor Explained; Test Explained; Patient Verbalized Understanding Time on Monitor: 05/31/2020 09:14 Time off Monitor: 05/31/2020 10:39 NST INTERVENTIONS NST Interventions: PO Hydration; Reposition Patient Physician Notified NST: Dr. Kwok on unit, reviewed fht BABY A: [id number] BABY A Movement : Present Contraction Frequency : irregular FHR Baseline : 135 Accelerations : 15X15 Decelerations : None Variability : Moderate 6-25bpm NST Review: Meets Criteria for Reactive NST NST Review and Verified By : Rivka Loza RN NST Results: Reactive NST REPORT Report Trigger: Send Report
[2020-05-31 10:57] LABS: URINE AMPHETAMINES SCREEN NEGATIVE; URINE BARBITURATES SCREEN NEGATIVE; URINE BENZODIAZEPINES SCREEN NEGATIVE; URINE COCAINE SCREEN NEGATIVE; URINE MARIJUANA (THC) SCREEN NEGATIVE; URINE METHADONE SCREEN NEGATIVE; URINE PHENCYCLIDINE SCREEN NEGATIVE
== END 2020-05-31 11:00 | disposition home or self-care (01) ==
LOC: LC 09:02
PROVIDERS: ATTEND Obstetrics & Gynecology
DX: O47.03 False labor before 37 completed weeks of gestation, third trimester (principal); Z02.83 Encounter for blood-alcohol and blood-drug test; Z3A.36 36 weeks gestation of pregnancy
CPT/HCPCS: 80307; 81001

== ENCOUNTER 2020-06-14 09:13 | Outpatient (CLI) | payer BC, OTHER ==
[2020-06-14 09:59] LABS: APPEARANCE,URINE SLIGHTLY-CLOUDY; BILIRUBIN,URINE NEGATIVE (NEGATIVE); COLOR,URINE STRAW; GLUCOSE, URINE NEGATIVE (NEGATIVE); KETONES,URINE NEGATIVE (NEGATIVE); LEUKOCYTE ESTERASE,URINE NEGATIVE (NEGATIVE); NITRITE,URINE NEGATIVE (NEGATIVE); PROTEIN,URINE NEGATIVE (NEGATIVE); URINE SPECIFIC GRAVITY 1.002; UROBILINOGEN,URINE NEGATIVE mg/dL (<2.0)
--- NOTE | 2020-06-14 10:15 | Non Stress Test Report ---
Non Stress Test Datetime Report Generated by CPN: 06/14/2020 10:15 DEMOGRAPHIC EGA NST: 38.5 INDICATION Indication for Study (NST) Other: provider orders VITAL SIGNS Temperature - NST: 98.1 Pulse - NST: 93 RESP - NST: 18 NBPSYS NST: 112 NBPDIA NST: 64 MONITORING Monitor Explained: Monitor Explained; Test Explained; Patient Verbalized Understanding Time on Monitor: 06/14/2020 09:31 Time off Monitor: 06/14/2020 10:14 NST Duration: 43 NST INTERVENTIONS NST Interventions: PO Hydration; Reposition Patient Physician Notified NST: K Ashton BABY A: [id number] Movement : Present Contraction Frequency : 0 FHR Baseline : 135 Accelerations : 15X15 Decelerations : None Variability : Moderate 6-25bpm NST Review: Meets Criteria for Reactive NST NST Review and Verified By : Stephane HARTMANN Results: Reactive NST REPORT Report Trigger: Send Report
[2020-06-14 10:37] LABS: URINE AMPHETAMINES SCREEN NEGATIVE; URINE BARBITURATES SCREEN NEGATIVE; URINE BENZODIAZEPINES SCREEN NEGATIVE; URINE COCAINE SCREEN NEGATIVE; URINE MARIJUANA (THC) SCREEN NEGATIVE; URINE METHADONE SCREEN NEGATIVE; URINE PHENCYCLIDINE SCREEN NEGATIVE
== END 2020-06-14 10:20 | disposition home or self-care (01) ==
LOC: LC 09:13
PROVIDERS: ATTEND Obstetrics & Gynecology Gynecology
DX: O47.1 False labor at or after 37 completed weeks of gestation (principal); Z3A.38 38 weeks gestation of pregnancy; Z88.0 Allergy status to penicillin; Z87.891 Personal history of nicotine dependence; Z02.83 Encounter for blood-alcohol and blood-drug test
CPT/HCPCS: 59025; 80307; 81005; 84112

== ENCOUNTER 2020-06-20 07:31 | Inpatient (IN) | payer BC, OTHER ==
[2020-06-15 10:24] LABS: ABSOLUTE LYMPHOCYTES (AUTO) 1.4 10^3/uL (0.5-4.7); ABSOLUTE MONOCYTES (AUTO) 0.8 10^3/uL (0.1-1.4); BASOPHILS % (AUTO) 0.2 % (0-2); EOSINOPHILS % (AUTO) 0.5 % (0-6); HEMOGLOBIN 14.3 g/dL (12.0-15.5); LYMPHOCYTES % (AUTO) 15.1 % (13-45); MEAN CORPUSCULAR HEMOGLOBIN 32.8 pg (27.0-33.4); MEAN CORPUSCULAR HGB CONC 35.6 g/dL (32.0-36.0); MEAN CORPUSCULAR VOLUME 92 fl (80-97); MONOCYTES % (AUTO) 8.4 % (3-13); PLATELET COUNT 185 10^3/uL (150-450); RED BLOOD COUNT 4.35 10^6/uL (3.72-5.28); RED CELL DISTRIBUTION WIDTH 14.7 % (11.5-14.0); SEGMENTED NEUTROPHILS % (AUTO) 75.8 % (42-78); TOTAL CELLS COUNTED % (AUTO) 100 %; WHITE BLOOD COUNT 9.3 10^3/uL (4.0-10.5)
[2020-06-15 10:30] LABS: APPEARANCE,URINE CLEAR; BILIRUBIN,URINE NEGATIVE (NEGATIVE); COLOR,URINE YELLOW; GLUCOSE, URINE NEGATIVE (NEGATIVE); KETONES,URINE NEGATIVE (NEGATIVE); LEUKOCYTE ESTERASE,URINE NEGATIVE (NEGATIVE); NITRITE,URINE NEGATIVE (NEGATIVE); PROTEIN,URINE NEGATIVE (NEGATIVE); URINE SPECIFIC GRAVITY 1.004; UROBILINOGEN,URINE NEGATIVE mg/dL (<2.0)
[2020-06-15 10:56] LABS: URINE AMPHETAMINES SCREEN NEGATIVE; URINE BARBITURATES SCREEN NEGATIVE; URINE BENZODIAZEPINES SCREEN NEGATIVE; URINE COCAINE SCREEN NEGATIVE; URINE MARIJUANA (THC) SCREEN NEGATIVE; URINE METHADONE SCREEN NEGATIVE; URINE PHENCYCLIDINE SCREEN NEGATIVE
[~2020-06-20 07:31] MED LIST changes: +CEFAZOLIN 2 GM/D5W RTU 2 GM/50 ML RTUPB IV PRN; -CLINDAMYCIN 600 MG/D5W RTU 600 MG/50 ML RTUPB IV PRN; -LIDOCAINE 0.5% INJ-PF (5 MG/ML) 50 ML SDV SUBCUT PRN; +RINGERS SOLUTION,LACTATED 1,000 ML IV ONE; -RINGERS SOLUTION,LACTATED 1,000 ML IV PRN
[2020-06-20] MEDS ORDERED: OXYTOCIN/0.9 % SODIUM CHLORIDE 30 UNIT/500 ML RTUINJ IV PRN (08:08)
[2020-06-20] MEDS ORDERED: MEASLES,MUMPS&RUBELLA VACC/PF 0.5 ML VIAL SUBCUT PRN (08:08)
[2020-06-20] MEDS ORDERED: PROMETHAZINE HCL INJ 25 MG/1 ML VIAL IV PRN ×3 (08:08→11:55)
[2020-06-20] MEDS ORDERED: RINGERS SOLUTION,LACTATED 1,000 ML IV PRN (08:08)
[2020-06-20] MEDS ORDERED: HYDROMORPHONE HCL INJ/PF 2 MG/ML AMPULE IV PRN (08:08)
[2020-06-20] MEDS ORDERED: ACETAMINOPHEN 325 MG TABLET PO PRN (08:08)
[2020-06-20] MEDS ORDERED: DIPH/PERTUSS(ACELL)/TETANUS VAC/PF 0.5 ML SYR (>=10YO) IM PRN (08:08)
[2020-06-20] MEDS ORDERED: ACETAMINOPHEN 1,000 MG/100 ML RTUPB IV PRN (08:08)
[2020-06-20] MEDS ORDERED: OXYCODONE-ACETAMINOPHEN 5-325 MG TABLET PO PRN ×3 (08:08→11:55)
[2020-06-20] MEDS ORDERED: KETOROLAC TROMETHAMINE INJ/PF 30 MG/1 ML SDV ONE (09:13)
[2020-06-20] MEDS ORDERED: OXYTOCIN 10 UNIT/ML VIAL ONE ×2 (09:13→09:14)
[2020-06-20] MEDS ORDERED: MIDAZOLAM 2 MG/2 ML INJ ONE (09:13)
[2020-06-20] MEDS ORDERED: FENTANYL CITRATE INJ/PF 100 MCG/2 ML AMPUL ONE (09:13)
[2020-06-20] MEDS ORDERED: EPHEDRINE SULFATE INJ 50 MG/1 ML AMPULE ONE (09:13)
[2020-06-20] MEDS ORDERED: ACETAMINOPHEN 1,000 MG/100 ML RTUPB IV ONE (09:14)
[2020-06-20] MEDS ORDERED: MORPHINE SULFATE 10 MG/ML INJ ONE ×2 (09:14→14:09)
[2020-06-20] MEDS ORDERED: ONDANSETRON HCL INJ/PF 4 MG/2 ML SDV ONE (09:14)
[2020-06-20] MEDS ORDERED: DEXTROSE 50%-WATER 25 GM/50 ML DISP.SYRIN IV ONE (11:46)
[2020-06-20] MEDS ORDERED: DIPHENHYDRAMINE HCL 50 MG/ML VIAL IV PRN (11:55)
[2020-06-20] MEDS ORDERED: FENTANYL CITRATE INJ/PF 100 MCG/2 ML AMPUL IV PRN ×3 (11:55)
[2020-06-20] MEDS ORDERED: MORPHINE SULFATE 10 MG/ML INJ IV PRN (11:55)
[2020-06-20] MEDS ORDERED: ONDANSETRON HCL INJ/PF 4 MG/2 ML SDV IV PRN (11:55)
[2020-06-20] MEDS ORDERED: MEPERIDINE HCL/PF INJ 25 MG/1 ML DISP.SYRIN IV PRN (11:55)
--- NOTE | 2020-06-20 12:20 | Operative Report ---
Operative Report DATE OF SURGERY: 06/20/20 PREOPERATIVE DIAGNOSIS: Patient desires a primary section because of previous u terine for surgery with a myomectomy POSTOPERATIVE DIAGNOSIS: Same OPERATION: Primary via low transverse uterine incision. SURGEON: LORRAINE CAR ANESTHESIA: Spinal TISSUE REMOVED OR ALTERED: Placenta and biopsy of ovarian lesions COMPLICATIONS: None ESTIMATED BLOOD LOSS: 400 cc INTRAOPERATIVE FINDINGS: Viable female crying at delivery normal uterus and tubes. There are hemosiderin deposits on the ovaries bilaterally PROCEDURE: Patient was taken to the OR and placed in supine position after her spinal anesthesia. She is prepared and draped in sterile fashion. Epstein was placed for drainage of the bladder. Low transverse incision was made and carried down the level of the fascia. The fascial incision was made with knife and extended bilaterally with curved Mello scissors. The fascia was off the rectus muscles using sharp and blunt dissection. The rectus muscles are in the midline. The peritoneum was entered without incident. Bladder blade was placed in uterine segment was identified. A low transverse incision was made creating a bladder flap. Bladder blade was placed low transverse uterine incision was made with the knife and extended with fingertips. The baby was delivered with some fundal pressure. Mouth and nose were suctioned free. The cord is doubly clamped and cut. Baby is passed off to the instructor hairspring in attendance. The placenta was manually extracted with trailing membranes. The uterus was externalized wrapped in a moist lap sponge. Uterine contents wiped free. Uterus was closed with a running locking layer of 0 chromic suture using the second layer to imbricate the first completing a double layer closure of the uterus. The serosa was closed with a running 2-0 chromic stitch. There were dark brown lesions on both ovaries and these were biopsied. The pelvis was irrigated and suctioned free of fluid the uterus was replaced in the abdomen. The abdominal wall peritoneum was closed with running 2-0 chromic stitch. Fascia was closed with a running 0 Vicryl in 2 segments. Burton's layer was brought together with 0 plain gut stitch and the skin was closed with running subcuticular 4-0 undyed Vicryl stitch. The wound was dressed mother and baby did well.
[2020-06-20] MEDS ORDERED: KETOROLAC TROMETHAMINE INJ/PF 30 MG/1 ML SDV IV SCH (14:00)
[2020-06-20] MEDS ORDERED: HYDROMORPHONE HCL INJ/PF 2 MG/ML AMPULE ONE (14:10)
[2020-06-20] MEDS ORDERED: PROMETHAZINE HCL INJ 25 MG/1 ML VIAL ONE (14:10)
[2020-06-20] MEDS ORDERED: OXYTOCIN/0.9 % SODIUM CHLORIDE 30 UNIT/500 ML RTUINJ ONE (14:56)
--- NOTE | 2020-06-20 17:02 | Delivery Summary ---
Del Sum A-C Datetime Report Generated by CPN: 06/20/2020 17:01 DELIVERY PERSONNEL DELIVERY PERSONNEL: [id number] Delivery Doctor:: Ankur Phipps MD Anesthesiologist:: Emily Fernández MD (Annotations: Data stored by CPN on behalf of user) CARE PROVIDER:: Eliza Mercado CRNA Sergeant Of Corrections:: Nathalie Fajardo RN Neonatal Nurse Practitioner:: RADHA Chun Nursery Nurse:: Mira Lemos RN Air Boatswain/ASSIGNMENT DESK EDITOR: Haley Funes CST (Annotations: Data stored by CPN on behalf of user) Air Boatswain/ASSIGNMENT DESK EDITOR: Emmett Bolden CST (Annotations: Data stored by CPN on behalf of user) MATERNAL INFORMATION Delivery Anesthesia: Spinal Estimated Blood Loss (ml): 845 LABOR SUMMARY EDC: 06/23/2020 00:00 Attempted: No Labor Anesthesia: None LABOR INFORMATION Reason for Induction: Not Applicable Group B Beta Strep: neg Steroids Given: None Reason Steroids Not Administered: Not Applicable MEMBRANES Membranes Rupture Method: Artificial Rupture of Membranes: 06/20/2020 11:36 Length of Rupture (hr): 0.00 Amniotic Fluid Color: Clear Amniotic Fluid Amount: Moderate Amniotic Fluid Odor: Normal STAGES OF LABOR Stage 3 hr: 0 Stage 3 min: 1 VAGINAL DELIVERY Episiotomy: None Laceration #1: None Laceration Extension #1: N/A CSECTION DELIVERY Primary Indication: N/A CSection Urgency: Scheduled CSection Incidence: Primary Labor: No Labor Elective: Elective CSection Incision: Lower Uterine Transverse BABY A INFORMATION Delivery Date/Time: 06/20/2020 11:36 Method of Delivery: : N/A Shoulder Dystocia : No PRESENTATION/POSITION BABY A Presentation: Cephalic PLACENTA INFORMATION BABY A Placenta Delivery Time : 06/20/2020 11:37 Placenta Status: Delivered SCORES BABY A Heart Rate 1 min: >100 bpm Resp Effort 1 min: Good Cry Reflex Irritability 1 min: Cough or Sneeze or Pulls Away Muscle Tone 1 min: Active Motion Color 1 min: Body [place], Extremities Blue Resuscitation Effort 1 min: Tactile Stimulation SCORE 1 MIN: 9 Heart Rate 5 min: >100 bpm Resp Effort 5 min: Good Cry Reflex Irritability 5 min: Cough or Sneeze or Pulls Away Muscle Tone 5 min: Active Motion Color 5 min: Body [place], Extremities Blue SCORE 5 MIN: 9 INFORMATION BABY A Sex: Female IDENTIFICATION BABY A Verification Date/Time: 06/20/2020 11:37 ID Band Number: [id number] Mother's Name Verified: Yes Infant RN Verifying Infant: LAnmol Fajardo, RN, and M. Jamir, RN WEIGHT/LENGTH BABY A Birthweight (gm): 3540 Weight (lb): 7 Infant Weight (oz): 13 Length (in): 21.00 Length (cm): 53.34 CORD INFORMATION BABY A No. Cord Vessels: 3 Cord Blood Taken: Yes-For Storage (Mom's Blood type +) BABY B INFORMATION : N/A
--- NOTE | 2020-06-20 17:02 | Birth Certificate Data ---
Cert Data Datetime Report Generated by CPN: 06/20/2020 17:01 CERTIFICATE DATA 48b. Now Livin (03/02/2020 09:43:Fatmata Sue RN) RISK FACTORS IN THIS 49a. Diabetes: No (03/02/2020 09:43:Rachell Camacho RN) 49b. Hypertension: No (03/02/2020 09:43:Rachell Camacho RN) 49c. Previous Births: 0 (03/02/2020 09:43:Fatmata Sue RN) 49d. Stillborns: No (03/02/2020 09:43:Rachell Camacho RN) 49d. IUGR: No (03/02/2020 09:43:Rachell Camacho RN) 49e. Infertility Treatment: Yes (03/02/2020 09:43:Rachell Camacho RN) Mother's Height 50b. Height Inches: 65 (03/02/2020 10:10:QS system process) Mother's Weight 51b. Weight at Delivery (lbs): 156 (06/20/2020 07:48:QS system process) Infections Present/Treated 53a. Gonorrhea: No (03/02/2020 09:43:Rachell Camacho RN) Results this Hospital Visit : Negative (03/02/2020 09:43:Jyoti Brown RN) 53b. Syphilis: No (03/02/2020 09:43:Rachell Camacho RN) 53c. Chlamydia: No (03/02/2020 09:43:Rachell Camacho RN) Results this Hospital Visit: Negative (03/02/2020 09:43:Jyoti Brown RN) 53d. Hepatitis B: No (03/02/2020 09:43:Rachell Camacho RN) Results this Hospital Visit: Negative (03/02/2020 09:43:Jyoti Brown RN) 53e. Hepatitis C: Negative (03/02/2020 09:43:Rachell Camacho RN) 53h. Mother Tested for HBsAG: Yes (03/02/2020 09:43:Jyoti Brown RN) 53i. Date Tested: 11/07/2019 00:00 (03/02/2020 09:43:Jyoti Brown RN) 53j. Test Result: Negative (03/02/2020 09:43:Jyoti Brown RN) Obstetric Procedures 54a, b, c. Obstetric Procedures: Ultrasound (03/02/2020 09:43:Rachell Camacho RN) Cigarette Smoking Cigarette Smoking: Former Smoker. [id number] (03/02/2020 09:43:Barbara Heath RN) Onset of Labor 56a. PROM >12 Hrs: 0.00 (03/02/2020 09:43:QS system process) 57d. Steroids - Lung Mat: None (03/02/2020 09:43:Nathalie Fajardo RN) 57d. Steroids - Lung Mat: Not Applicable (03/02/2020 09:43:Nathalie Fajardo RN) 57g. Moderate/Heavy Meconium: Clear (03/02/2020 09:43:Nathalie Fajardo RN) 57h. Intolerance of Labor: N/A (03/02/2020 09:43:Nathalie Fajardo RN) 57i. Epidural/Spinal Anesthesia: None (03/02/2020 09:43:Nathalie Fajardo RN) 58c. Presentation at 58c. Presentation at - A : Cephalic (03/02/2020 09:43:Del AuraAnmol Thomas, FRAME NAILER) Final Route and Method of Del 58d. Baby A Route/Delivery: (03/02/2020 09:43:Marianna Bowie RN) 58e. Trial of Labor Attempted: No (03/02/2020 09:43:Nathalie Fajardo RN) 58e. Trial of Labor Attempted A: N/A (03/02/2020 09:43:Nathalie Fajardo RN) 58e. Trial of Labor Attempted B: N/A (03/02/2020 09:43:Nathalie Fajardo RN) Maternal Morbidity 59b. 3rd or 4th Degree Lacs: None (03/02/2020 09:43:Nathalie Denise Fajardo, RN) Birthweight Baby A: 3540 (03/02/2020 09:43:Mira Crimm, RN) 60a. Pounds : 7 (03/02/2020 09:43:QS system process) 60b. Ounces: 13 (03/02/2020 09:43:QS system process) 62a. 5 Minute Baby A: 9 (03/02/2020 09:43:QS system process)
[2020-06-20] MEDS: DOCUSATE SODIUM 100 MG CAPSULE PO SCH (17:41)
[2020-06-20] MEDS: KETOROLAC TROMETHAMINE INJ/PF 30 MG/1 ML SDV IV SCH (17:41)
[2020-06-20] MEDS: SIMETHICONE 80 MG TAB.CHEW PO PRN (20:28)
[2020-06-21] MEDS: KETOROLAC TROMETHAMINE INJ/PF 30 MG/1 ML SDV IV SCH (04:02)
[2020-06-21] MEDS: OXYCODONE-ACETAMINOPHEN 5-325 MG TABLET PO PRN ×2 (04:03→11:37)
[2020-06-21] MEDS: SIMETHICONE 80 MG TAB.CHEW PO PRN ×3 (04:04→21:39)
[2020-06-21 07:03] LABS: HEMATOCRIT 31.9 % (36.0-47.0); HEMOGLOBIN 11.2 g/dL (12.0-15.5); MEAN CORPUSCULAR HEMOGLOBIN 32.9 pg (27.0-33.4); MEAN CORPUSCULAR HGB CONC 35.1 g/dL (32.0-36.0); MEAN CORPUSCULAR VOLUME 94 fl (80-97); PLATELET COUNT 177 10^3/uL (150-450); RED CELL DISTRIBUTION WIDTH 14.2 % (11.5-14.0); WHITE BLOOD COUNT 15.3 10^3/uL (4.0-10.5)
[2020-06-21] MEDS: PRENATAL VITAMIN W DHA CAPSULE PO SCH ×2 (08:22→09:08)
[2020-06-21] MEDS: DOCUSATE SODIUM 100 MG CAPSULE PO SCH ×3 (08:22→17:13)
--- NOTE | 2020-06-21 08:27 | PDOC PROGRESS REPORT ---
Subjective-OB Progress Note for:: 06/21/20 Physical Exam (OB) Vital Signs: Temp Pulse Resp BP Pulse Ox 97.8 F 78 18 102/58 L 97 06/21/20 03:46 06/21/20 03:46 06/21/20 03:46 06/21/20 03:46 06/21/20 03:46 Intake & Output 06/20/20 06/21/20 06/22/20 06:59 06:59 06:59 Intake Total 3100 Output Total 2700 Balance 400 - PIH/Pre-Eclampsia Headache: Absent Epigastric Pain: No Visual Changes: No - Dressing Removed: No Incision: Dressing - Maternal Morbidity 59. Maternal Morbidity (serious complications experinced by the mother associated with labor and delivery: None of the above - Lochia Lochia Amount: Small 10-25 ml Lochia Color: Rubra/Red - Abdomen Description: Soft Hernia Present: No Bowel Sounds: Normoactive Flatus Presence: Present Stool: No Fundal Description: Firm, Midline Fundal Height: u/u - u/2 Objective-Diagnostic Laboratory: 06/21/20 06:27 06/21/20 06:27 WBC 15.3 H RBC 3.40 L Hgb 11.2 L Hct 31.9 L MCV 94 MCH 32.9 MCHC 35.1 RDW 14.2 H Plt Count 177 Assessment and Plan(PN) - Time Spent with Patient Time with patient: Less than 15 minutes Medications reviewed and adjusted accordingly: Yes - Disposition Anticipated Discharge Disposition: Home, Self Care Anticipated Discharge Timeframe: within 36 hours
[2020-06-21] MEDS: IBUPROFEN 800 MG TABLET PO SCH ×3 (09:08→21:39)
[2020-06-21] MEDS ORDERED: IBUPROFEN 800 MG TABLET PO SCH (12:00)
[2020-06-21] MEDS ORDERED: MAGNESIUM HYDROXIDE SUSP 30 ML UDCUP PO ONE ×2 (15:32→17:45)
[2020-06-21] MEDS ORDERED: MAGNESIUM HYDROXIDE SUSP 30 ML UDCUP ONE (21:37)
[2020-06-22] MEDS: IBUPROFEN 800 MG TABLET PO SCH ×2 (03:13→10:25)
[2020-06-22 08:32] LABS: HEMATOCRIT 30.7 % (36.0-47.0); HEMOGLOBIN 10.6 g/dL (12.0-15.5); MEAN CORPUSCULAR HEMOGLOBIN 32.2 pg (27.0-33.4); MEAN CORPUSCULAR HGB CONC 34.4 g/dL (32.0-36.0); MEAN CORPUSCULAR VOLUME 94 fl (80-97); PLATELET COUNT 169 10^3/uL (150-450); RED BLOOD COUNT 3.28 10^6/uL (3.72-5.28); RED CELL DISTRIBUTION WIDTH 14.8 % (11.5-14.0); WHITE BLOOD COUNT 11.1 10^3/uL (4.0-10.5)
[2020-06-22 08:35] VITALS: BP 114/72
--- NOTE | 2020-06-22 10:23 | PDOC DISCHARGE SUMMARY ---
Impression - Admit/DC Date/PCP Admission Date/Primary Care Provider: 06/20/20 07:31 MISSAEL HAMPTON MD Discharge Date: 06/22/20 - Discharge Diagnosis (1) Delivery by elective caesarean section Is this a current diagnosis for this admission?: Yes (2) with history of uterine myomectomy Is this a current diagnosis for this admission?: Yes - Additional Information Discharge Diet: Regular Discharge Activity: Balance Activity w/Rest, No Lifting Over 10 Pounds, No Lifting/Push/Pulling, Pelvic Rest, No tub bath Referrals: MISSAEL HAMPTON MD [Primary Care Provider] - Prescriptions: Ibuprofen [Motrin 800 mg Tablet] 800 mg PO Q8HP PRN #60 tablet PRN Reason: Oxycodone HCl/Acetaminophen [Percocet 5-325 mg Tablet] 1 tab PO Q4HP PRN #10 tablet PRN Reason: Home Medications: Pnv No.103/Folic/Om3s/Fish Oil [ Gummies] 2 tab PO DAILY 08/31/18 Ibuprofen [Motrin 800 mg Tablet] 800 mg PO Q8HP PRN #60 tablet 06/22/20 Oxycodone HCl/Acetaminophen [Percocet 5-325 mg Tablet] 1 tab PO Q4HP PRN #10 tablet 06/22/20 Hospital Course 59. Maternal Morbidity (serious complications experinced by the mother associated with labor and delivery: None of the above Results Laboratory Results: WBC 11.1 10^3/uL (4.0-10.5) H 06/22/20 07:18 RBC 3.28 10^6/uL (3.72-5.28) L 06/22/20 07:18 Hgb 10.6 g/dL (12.0-15.5) L 06/22/20 07:18 Hct 30.7 % (36.0-47.0) L 06/22/20 07:18 MCV 94 fl (80-97) 06/22/20 07:18 MCH 32.2 pg (27.0-33.4) 06/22/20 07:18 MCHC 34.4 g/dL (32.0-36.0) 06/22/20 07:18 RDW 14.8 % (11.5-14.0) H 06/22/20 07:18 Plt Count 169 10^3/uL (150-450) 06/22/20 07:18 Lymph % (Auto) 15.1 % (13-45) 06/15/20 09:52 Ballard % (Auto) 8.4 % (3-13) 06/15/20 09:52 Eos % (Auto) 0.5 % (0-6) 06/15/20 09:52 Baso % (Auto) 0.2 % (0-2) 06/15/20 09:52 Absolute Neuts (auto) 7.0 10^3/uL (1.7-8.2) 06/15/20 09:52 Absolute Lymphs (auto) 1.4 10^3/uL (0.5-4.7) 06/15/20 09:52 Absolute Monos (auto) 0.8 10^3/uL (0.1-1.4) 06/15/20 09:52 Absolute Eos (auto) 0.0 10^3/uL (0.0-0.6) 06/15/20 09:52 Absolute Basos (auto) 0.0 10^3/uL (0.0-0.2) 06/15/20 09:52 Seg Neutrophils % 75.8 % (42-78) 06/15/20 09:52 POC Glucose 71 mg/dL (70-110) 06/20/20 13:49 Urine Color YELLOW 06/15/20 09:45 Urine Appearance CLEAR 06/15/20 09:45 Urine pH 7.0 (5.0-9.0) 06/15/20 09:45 Ur Specific Edison 1.004 06/15/20 09:45 Urine Protein NEGATIVE mg/dL (NEGATIVE) 06/15/20 09:45 Urine Glucose (UA) NEGATIVE mg/dL (NEGATIVE) 06/15/20 09:45 Urine Ketones NEGATIVE mg/dL (NEGATIVE) 06/15/20 09:45 Urine Blood NEGATIVE (NEGATIVE) 06/15/20 09:45 Urine Nitrite NEGATIVE (NEGATIVE) 06/15/20 09:45 Urine Bilirubin NEGATIVE (NEGATIVE) 06/15/20 09:45 Urine Urobilinogen NEGATIVE mg/dL (<2.0) 06/15/20 09:45 Ur Leukocyte Esterase NEGATIVE (NEGATIVE) 06/15/20 09:45 Urine WBC (Auto) 3 /HPF 06/15/20 09:45 Urine RBC (Auto) 0 /HPF 06/15/20 09:45 Urine Bacteria (Auto) 3+ /HPF 06/15/20 09:45 Squamous Epi Cells Auto 2 /HPF 06/15/20 09:45 Urine Mucus (Auto) RARE /LPF 06/15/20 09:45 Urine Ascorbic Acid NEGATIVE (NEGATIVE) 06/15/20 09:45 Urine Opiates Screen NEGATIVE 06/15/20 09:45 Urine Methadone Screen NEGATIVE 06/15/20 09:45 Ur Barbiturates Screen NEGATIVE 06/15/20 09:45 Ur Phencyclidine Scrn NEGATIVE 06/15/20 09:45 Ur Amphetamines Screen NEGATIVE 06/15/20 09:45 U Benzodiazepines Scrn NEGATIVE 06/15/20 09:45 Urine Cocaine Screen NEGATIVE 06/15/20 09:45 U Marijuana (THC) Screen NEGATIVE 06/15/20 09:45 COVID-19 Source See comment 06/15/20 09:45 COVID-19 (YUMIKO) Not Detected (Not Detect) 06/15/20 09:45 Blood Type O POSITIVE 06/18/20 10:05 Antibody Screen NEGATIVE 06/18/20 10:05 Plan Plan of Treatment: follow up in one week at [facility] for incision check
[2020-06-22] MEDS: PRENATAL VITAMIN W DHA CAPSULE PO SCH (10:25)
[2020-06-22] MEDS: DOCUSATE SODIUM 100 MG CAPSULE PO SCH (10:25)
== END 2020-06-22 12:05 | disposition home or self-care (01) | DRG 788 ==
LOC: 2N 07:31
PROVIDERS: ADMIT Obstetrics & Gynecology; ATTEND Obstetrics & Gynecology
PROC: 10D00Z1 Extraction of Products of Conception, Low, Open Approach (ICD-10-PCS; principal; 2020-06-20)
PROC: 0UB20ZX Excision of Bilateral Ovaries, Open Approach, Diagnostic (ICD-10-PCS; 2020-06-20)
DX: O34.83 Maternal care for other abnormalities of pelvic organs, third trimester (principal); N83.9 Noninflammatory disorder of ovary, fallopian tube and broad ligament, unspecified; Z37.0 Single live birth; Z03.818 Encounter for observation for suspected exposure to other biological agents ruled out; Z88.3 Allergy status to other anti-infective agents; Z88.0 Allergy status to penicillin
CPT/HCPCS: 1961; 36415; 59025; 80307; 81001; 82962; 85025; 85027; 86850; 86900; 86901; 87635; 88305; 94760; 94799; C9803; J0131; J0690; J1170; J1885; J2250; J2270; J2405; J2550; J2590; J3010; J3490; J7120